=== PATIENT | male | born 1950 | race Caucasian/White ===

== ENCOUNTER 2016-05-28 08:22 | Emergency (ER) | payer MEDICAID, OTHER, SELFPAY ==
[2016-05-28] MEDS ORDERED: Albuterol/Ipratropium 3.0-0.5 MG/3 ML Neb Soln NEB STA (09:10)
--- NOTE | 2016-05-28 09:44 | EDM.PDOC ---
ED HISTORY OF PRESENT ILLNESS - General Chief Complaint: Respiratory Problem Stated Complaint: SOB Time Seen by Provider: 05/28/16 08:42 Source of Information: Reports: Patient, RN notes reviewed History Limitations: Reports: No limitations - History of Present Illness INITIAL COMMENTS - FREE TEXT/NARRATIVE: The patient states that he has had a cough productive of white sputum, and dyspnea on exertion for the past 5 months, approximately. His dyspnea on exertion has gotten worse over the past 5 days, but he is not dyspneic at rest. He states that he has had wheezing for about 3 months. He states that he has seen Dr. Howard 3 times, [address] Dr. Richardson once, but that no tests were ordered. He then saw a midlevel in their office about 2 months ago, and a chest x-ray was ordered, which, according to the patient, showed left lower lobe pneumonia. He believes that he was prescribed an antibiotic, and he believes that he took it. He was also prescribed Singulair, which he states he took, but ran out of about 3 weeks ago. He states that he had previously been prescribed a codeine cough syrup, but when that ran out, he turned to drinking 6 shooter bottles of alcohol daily. No recent fever, chest pain, palpitations, nausea, vomiting, constipation, diarrhea, or urinary symptoms. The patient smokes about one pack of cigarettes per day, despite his aforementioned pulmonary symptoms. - Related Data Allergies/ADRs: Allergies Allergy/AdvReac Type Severity Reaction Status Date / Time No Known Allergies Allergy Verified 05/28/16 09:02 Home Meds: Home Meds Levothyroxine 125 mcg PO DAILY 07/21/13 [History] Metoprolol Succinate [Toprol XL] 50 mg PO DAILY 07/21/13 [History] Albuterol [IJD: Ventolin HFA] 2 puff INH Q4H PRN #18 gm 05/28/16 [Rx] Past Medical History Cardiovascular History: Reports: Hypertension Psychiatric History: Reports: Depression Endocrine/Metabolic History: Reports: Hypothyroidism - Infectious Disease History Infectious Disease History: Reports: Chicken pox, Mumps Social & Family History - Tobacco Use Smoking Status *Q: Current Every Day Smoker Years of Tobacco use: 50 Packs/Tins Daily: 1 - Caffeine Use Caffeine Use: Reports: Coffee - Alcohol Use Alcohol Use History: Yes Days Per Week of Alcohol Use: 7 Number of Drinks Per Day: 6 Total Drinks Per Week: 42 Alcohol Use Frequency: Daily - Recreational Drug Use Recreational Drug Use: No - Living Situation & Occupation Living situation: Reports: , alone Occupation: employed ([employer]) ED ROS GENERAL - Review of Systems Review Of Systems: See Below Constitutional: Reports: no symptoms HEENT: Reports: No symptoms Respiratory: Reports: Wheezing, Cough, Sputum. Denies: Shortness of Breath Cardiovascular: Reports: No symptoms, Dyspnea on exertion Endocrine: Reports: no symptoms GI/Abdominal: Reports: No symptoms : Reports: no symptoms Musculoskeletal: Reports: no symptoms Skin: Reports: no symptoms Neurological: Reports: No Symptoms Psychiatric: Reports: No symptoms Hematologic/Lymphatic: Reports: no symptoms Immunologic: Reports: no symptoms ED EXAM, GENERAL - Physical Exam Exam: See Below Exam Limited By: No limitations General Appearance: alert, WD/WN, no apparent distress Eye Exam: bilateral eye: EOMI, normal inspection Ears: normal external exam, hearing grossly normal Ear Exam: bilateral ear: auricle normal Nose: normal inspection, no blood Throat/Mouth: Normal inspection, Normal lips, Normal voice, No airway compromise Head: atraumatic, normocephalic Neck: normal inspection, full range of motion Respiratory/Chest: no respiratory distress, no accessory muscle use, decreased breath sounds, wheezing (throughout lungs), prolonged expiration Cardiovascular: normal peripheral pulses, no gallop, no JVD, no murmur, no rub, tachycardia (regular) Peripheral Pulses: 4+: radial (L), radial (R) GI/Abdominal: normal bowel sounds, soft, non tender, no organomegaly, no distention, no abnormal bruit, no mass (Male) Exam: Deferred Rectal (Males) Exam: Deferred Back Exam: normal inspection, full range of motion, NT Extremities: normal inspection, normal range of motion, no pedal edema, normal capillary refill Neurological: alert, oriented, normal cognition, no motor/sensory deficits Psychiatric: normal affect Skin Exam: Warm, Dry, Intact, Normal color, No rash Lymphatic: no adenopathy EKG INTERPRETATION EKG Date: 05/28/16 Time: 09:25 Rhythm: other (Sinus tachycardia) Rate (beats/min): 108 [place]: normal P-wave: present QRS: normal ST-T: normal QT: normal Comparison: no change (04/15/2014) Course - Vital Signs Last Recorded V/S: Last Vital Signs Temp 36.5 C 05/28/16 08:25 Pulse 122 H 05/28/16 08:25 Resp 33 H 05/28/16 08:25 BP 112/84 05/28/16 08:25 Pulse Ox 99 05/28/16 10:52 - Orders/Labs/Meds Orders: Active Orders 24 hr Category Date Time Status EKG Documentation Completion [RC] STAT Care 05/28/16 09:07 Active RT Aerosol Therapy [RC] ASDIRECTED Care 05/28/16 09:10 Active RT Aerosol Therapy [RC] ASDIRECTED Care 05/28/16 10:36 Inactive RT Aerosol Therapy [RC] ASDIRECTED Care 05/28/16 10:45 Active CULTURE BLOOD [] Stat Lab 05/28/16 09:30 Received CULTURE BLOOD [] Stat Lab 05/28/16 09:50 Received Sodium Chloride 0.9% [Normal Saline] 1,000 ml Med 05/28/16 09:45 Active IV ASDIRECTED Sodium Chloride 0.9% [Normal Saline] 100 ml Med 05/28/16 11:15 Active IV ASDIRECTED Sodium Chloride 0.9% [Saline Flush] Med 05/28/16 10:11 Active 10 ml FLUSH ONETIME PRN Medication Orders Sodium Chloride (Normal Saline) 1,000 mls @ 150 mls/hr IV ASDIRECTED RADHA Last Admin: 05/28/16 09:49 Dose: 150 mls/hr Sodium Chloride (Normal Saline) 100 mls @ 65 mls/hr IV ASDIRECTED RADHA Last Admin: 05/28/16 10:15 Dose: 65 mls/hr Sodium Chloride (Saline Flush) 10 ml FLUSH ONETIME PRN PRN Reason: IV FLUSH Last Admin: 05/28/16 10:15 Dose: 10 ml Labs: Laboratory Tests 05/28/16 05/28/16 05/28/16 Range/Units 08:35 08:35 08:35 WBC 8.02 (4.23-9.07) K/mm3 RBC 5.16 (4.63-6.08) M/mm3 Hgb 17.0 (13.7-17.5) gm/L Hct 50.7 (40.1-51.0) % MCV 98.3 H (79.0-92.2) fl MCH 32.9 H (25.7-32.2) pg MCHC 33.5 (32.2-35.5) g/dl RDW Std Deviation 45.0 H (35.1-43.9) fL Plt Count 205 (163-337) K/mm3 MPV 9.8 (9.4-12.3) fl Neutrophils % (Manual) 16 L (40-60) % Band Neutrophils % 0 (0-10) % Lymphocytes % (Manual) 77 H (20-40) % Atypical Lymphs % 0 % Monocytes % (Manual) 3 (2-10) % Eosinophils % (Manual) 4 (0.8-7.0) % Basophils % (Manual) 0 L (0.2-1.2) Differential Comment See note Platelet Estimate Adequate RBC Morph Comment Normal PT 10.9 (8.0-13.0) SECONDS INR 1.00 APTT 29 (22-36) SECONDS D-Dimer, Quantitative 1.81 H (0.19-0.59) mg/L Puncture Site ABG pH (7.35-7.45) ABG pCO2 (35.0-45.0) mmHg ABG pO2 (80.0-100.0) mmHg ABG HCO3 (22.0-26.0) meq/L ABG O2 Saturation (96.0-97.0) % ABG Base Excess (-2-2.0) Hieu Test A-a Gradient mmHg FiO2 (21.00-100.00) % Sodium 141 (136-145) mEq/L Potassium 3.8 (3.5-5.1) mEq/L Chloride 103 (98-107) mEq/L Carbon Dioxide 28 (21-32) mEq/L Anion Gap 13.8 (5-15) BUN 14 (7-18) mg/dL Creatinine 1.0 (0.7-1.3) mg/dL Est Cr Clr Drug Dosing 70.69 mL/min Estimated GFR (MDRD) > 60 (>60) mL/min BUN/Creatinine Ratio 14.0 (14-18) Glucose 108 (80-115) mg/dL Calcium 8.3 L (8.5-10.1) mg/dL Total Bilirubin 0.4 (0.2-1.0) mg/dL AST 26 (15-37) U/L ALT 28 (16-63) U/L Alkaline Phosphatase 111 (46-116) U/L Troponin I < 0.017 (0.00-0.056) ng/mL C-Reactive Protein < 0.2 (<1.0) mg/dL B-Natriuretic Peptide (0-100) pg/mL Total Protein 7.9 (6.4-8.2) g/dl Albumin 3.7 (3.4-5.0) g/dl Globulin 4.2 gm/dL Albumin/Globulin Ratio 0.9 L (1-2) 05/28/16 05/28/16 Range/Units 08:35 09:50 WBC (4.23-9.07) K/mm3 RBC (4.63-6.08) M/mm3 Hgb (13.7-17.5) gm/L Hct (40.1-51.0) % MCV (79.0-92.2) fl MCH (25.7-32.2) pg MCHC (32.2-35.5) g/dl RDW Std Deviation (35.1-43.9) fL Plt Count (163-337) K/mm3 MPV (9.4-12.3) fl Neutrophils % (Manual) (40-60) % Band Neutrophils % (0-10) % Lymphocytes % (Manual) (20-40) % Atypical Lymphs % % Monocytes % (Manual) (2-10) % Eosinophils % (Manual) (0.8-7.0) % Basophils % (Manual) (0.2-1.2) Differential Comment Platelet Estimate RBC Morph Comment PT (8.0-13.0) SECONDS INR APTT (22-36) SECONDS D-Dimer, Quantitative (0.19-0.59) mg/L Puncture Site Lt radial ABG pH 7.43 (7.35-7.45) ABG pCO2 36.9 (35.0-45.0) mmHg ABG pO2 61.0 L (80.0-100.0) mmHg ABG HCO3 24.1 (22.0-26.0) meq/L ABG O2 Saturation 91.7 L (96.0-97.0) % ABG Base Excess 0.6 (-2-2.0) Hieu Test Positive A-a Gradient 34 mmHg FiO2 21.00 (21.00-100.00) % Sodium (136-145) mEq/L Potassium (3.5-5.1) mEq/L Chloride (98-107) mEq/L Carbon Dioxide (21-32) mEq/L Anion Gap (5-15) BUN (7-18) mg/dL Creatinine (0.7-1.3) mg/dL Est Cr Clr Drug Dosing mL/min Estimated GFR (MDRD) (>60) mL/min BUN/Creatinine Ratio (14-18) Glucose (80-115) mg/dL Calcium (8.5-10.1) mg/dL Total Bilirubin (0.2-1.0) mg/dL AST (15-37) U/L ALT (16-63) U/L Alkaline Phosphatase (46-116) U/L Troponin I (0.00-0.056) ng/mL C-Reactive Protein (<1.0) mg/dL B-Natriuretic Peptide < 15 (0-100) pg/mL Total Protein (6.4-8.2) g/dl Albumin (3.4-5.0) g/dl Globulin gm/dL Albumin/Globulin Ratio (1-2) Meds: Medications Generic Name Dose Route Start Last Admin Trade Name Freq PRN Reason Stop Dose Admin Sodium Chloride 1,000 mls @ 150 mls/hr 05/28/16 09:45 05/28/16 09:49 Normal Saline IV 150 mls/hr ASDIRECTED RADHA Administration Sodium Chloride 100 mls @ 65 mls/hr 05/28/16 11:15 05/28/16 10:15 Normal Saline IV 65 mls/hr ASDIRECTED RADHA Administration Sodium Chloride 10 ml 05/28/16 10:11 05/28/16 10:15 Saline Flush FLUSH 10 ml ONETIME PRN Administration IV FLUSH Discontinued Medications Generic Name Dose Route Start Last Admin Trade Name Freq PRN Reason Stop Dose Admin Albuterol 0.63 mg 05/28/16 10:36 05/28/16 10:52 Proventil Neb Soln NEB 05/28/16 10:37 Not Given ONETIME ONE Albuterol 2.5 mg 05/28/16 10:45 05/28/16 10:52 Proventil Neb Soln NEB 05/28/16 10:46 Not Given ONETIME ONE Albuterol Confirm 05/28/16 10:48 05/28/16 10:51 Proventil Neb Soln Administered 05/28/16 10:49 2.5 mg Dose Administration 2.5 mg .ROUTE .STK-MED ONE Albuterol/Ipratropium 3 ml 05/28/16 09:10 05/28/16 09:24 Duoneb 3.0-0.5 Mg/3 Ml NEB 05/28/16 09:11 3 ml ONETIME STA Administration Sodium Chloride 150 mls @ 60 mls/hr 05/28/16 10:11 05/28/16 11:09 Normal Saline IV 05/28/16 12:40 Not Given ASDIRECTED ONE Iopamidol 100 ml 05/28/16 10:11 05/28/16 10:15 Isovue-370 (76%) IVPUSH 05/28/16 10:12 100 ml ONETIME ONE Administration Prednisone 60 mg 05/28/16 10:36 05/28/16 11:02 Prednisone PO 05/28/16 10:37 60 mg ONETIME STA Administration - Radiology Interpretation Free Text/Narrative:: Two-view chest radiograph does not appear to demonstrate any acute abnormalities. Cardiac silhouette is within normal limits. No pulmonary vascular congestion. No pleural effusions. No focal infiltrate. No pneumothorax. There may be some platelike atelectasis in the left base. Formal read per the Radiologist pending. CT angiogram of the chest is read by Dr. Raymond as: 1. No findings of pulmonary embolism 2. Gallstones. 3. 2 small subpleural nodules. If patient is a smoker, recommend follow-up exam in 6 months. If patient is not a smoker, recommend noncontrast chest CT in one year. 4. Other incidental findings as noted above. - Re-Assessments/Exams Free Text/Narrative Re-Assessment/Exam: 05/28/16 09:43 The patient's D-dimer has returned elevated at 1.81. I have ordered a CT angiogram of the chest to rule out PE. 05/28/16 10:37 The patient sounds somewhat better after a DuoNeb, although still has diffuse wheezing. I have ordered an albuterol neb and 60 mg oral prednisone. 05/28/16 11:42 The patient was reexamined. His lungs are now almost entirely clear. I will discharge him home with a prescription for albuterol, should he need it, however , I believe his primary problem is airway restriction due to cigarette smoking. The patient states that he is able to quit smoking, which I highly recommended. I am also recommending that the patient cut his alcohol consumption down considerably, explaining that alcohol does not help with coughs. The CT angiogram demonstrated some pulmonary nodules. I made patient aware that he will need to have a repeat CT scan of his chest with IV contrast in about 6 months, which can be arranged for by Dr. Howard. Departure - Departure Time of Disposition: 11:45 Disposition: Home, Self-Care 01 Condition: good Clinical Impression: Reactive airway disease, Alcohol abuse, Pulmonary nodules Referrals: Ramses Olivares MD [Primary Care Provider] - Forms: ED Department Discharge Additional Instructions: You were seen in the emergency room for 5 months of coughing and shortness of breath with exertion. Workup in the ER included blood work, 2 sets of blood cultures, an ABG, an ECG, a chest x-ray, and a CT angiogram of your chest. Your workup was, for the most part, unremarkable. You do not have pneumonia. You were not suffering from a COPD exacerbation. Your symptoms substantially improved after treatment with albuterol and prednisone. It is MOST LIKELY that your symptoms were due to airway restriction due to cigarette smoking. We STRONGLY recommend that you quit smoking. You have been prescribed an albuterol inhaler. Take 2 puffs as needed for shortness of breath with wheezing, with or without cough. If you require albuterol more often than every 4 hours, you need to be seen by a doctor. The CT angiogram of your chest found some pulmonary nodules. The Radiologist is recommending a repeat CT scan of your chest with IV contrast in 6 months. This can be arranged by Dr. Howard. Alcohol does not suppress coughs. We recommend that you reduce your drinking to no more than 2 drinks per day. Followup with Dr. Howard at the next available appointment. If any other problems, please do not hesitate to return to the ER. - My Orders Last 24 Hours: My Active Orders 05/28/16 09:07 EKG Documentation Completion [RC] STAT 05/28/16 09:10 RT Aerosol Therapy [RC] ASDIRECTED 05/28/16 09:30 CULTURE BLOOD [BC] Stat 05/28/16 09:45 Sodium Chloride 0.9% [Normal Saline] 1,000 ml IV ASDIRECTED 05/28/16 09:50 CULTURE BLOOD [BC] Stat 05/28/16 10:11 Sodium Chloride 0.9% [Saline Flush] 10 ml FLUSH ONETIME PRN 05/28/16 10:36 RT Aerosol Therapy [RC] ASDIRECTED 05/28/16 10:45 RT Aerosol Therapy [RC] ASDIRECTED 05/28/16 11:15 Sodium Chloride 0.9% [Normal Saline] 100 ml IV ASDIRECTED - Assessment/Plan Last 24 Hours: My Active Orders 05/28/16 09:07 EKG Documentation Completion [RC] STAT 05/28/16 09:10 RT Aerosol Therapy [RC] ASDIRECTED 05/28/16 09:30 CULTURE BLOOD [BC] Stat 05/28/16 09:45 Sodium Chloride 0.9% [Normal Saline] 1,000 ml IV ASDIRECTED 05/28/16 09:50 CULTURE BLOOD [BC] Stat 05/28/16 10:11 Sodium Chloride 0.9% [Saline Flush] 10 ml FLUSH ONETIME PRN 05/28/16 10:36 RT Aerosol Therapy [RC] ASDIRECTED 05/28/16 10:45 RT Aerosol Therapy [RC] ASDIRECTED 05/28/16 11:15 Sodium Chloride 0.9% [Normal Saline] 100 ml IV ASDIRECTED
[2016-05-28] MEDS ORDERED: Sodium Chloride 0.9% 1,000 ML IV SCH (09:45)
[2016-05-28] MEDS ORDERED: Iopamidol 755 Mg/ML 100 ML Bottle IVPUSH ONE (10:11)
[2016-05-28] MEDS ORDERED: Sodium Chloride 0.9% 10 ML Syringe FLUSH PRN (10:11)
--- NOTE | 2016-05-28 10:29 | CT ---
CT chest Technique: Multiple axial sections were obtained through the chest. Intravenous contrast was utilized. Findings: Pulmonary arteries are well-opacified. No filling defects are seen to indicate pulmonary embolism. Mediastinum and hilar regions show no adenopathy or mass. Mild coronary artery calcification is seen. No pericardial thickening is seen. Increased density within the gallbladder is seen most likely representing gallstones. Small subpleural nodule is noted within the left lung base measuring 5 mm. Second small subpleural nodule is noted within the right middle lobe measuring 3.5 mm. Lungs otherwise are clear. Scattered degenerative endplate spurring is seen within the spine. Impression: 1. No findings of pulmonary embolism. 2. Gallstones. 3. 2 small subpleural nodules. If patient is a smoker, recommend follow-up exam in 6 months. If patient is not a smoker, recommend noncontrast chest CT in one year. 4. Other incidental findings as noted above. Diagnostic code #3
--- NOTE | 2016-05-28 10:31 | CR ---
Chest: Two views of the chest were obtained. Comparison: Previous chest x-ray of 10/13/13. Heart size and mediastinum are within normal limits. Lungs are clear with no acute infiltrates. Mild scattered disc space narrowing noted within the spine with endplate osteophytes. Impression: 1. Incidental findings. Nothing acute is identified on two-view chest x-ray. Diagnostic code #2
[2016-05-28] MEDS ORDERED: Albuterol 0.021% 0.63 MG/3 ML Neb Soln NEB ONE ×2 (10:36→10:45)
[2016-05-28] MEDS ORDERED: predniSONE 20 MG Tab PO STA (10:36)
[2016-05-28] MEDS ORDERED: Albuterol 0.083% 2.5 MG/3 ML Neb Soln ONE (10:48)
[2016-05-28] MEDS ORDERED: Sodium Chloride 0.9% 100 ML IV SCH (11:15)
[2016-05-28 12:12] VITALS: BP 143/84
== END 2016-05-28 12:08 | disposition home or self-care (01) ==
LOC: JD.ED 08:22
DX: J45.909 Unspecified asthma, uncomplicated (principal); F10.10 Alcohol abuse, uncomplicated; R91.1 Solitary pulmonary nodule; I10 Essential (primary) hypertension; F32.9 Major depressive disorder, single episode, unspecified; E03.9 Hypothyroidism, unspecified; F17.210 Nicotine dependence, cigarettes, uncomplicated; Z79.899 Other long term (current) drug therapy
CPT/HCPCS: 36415; 36600; 71020; 71275; 80053; 82803; 83880; 84484; 85025; 85379; 85610; 85730; 86140; 87040; 93005; 94640; 94664; 96360; 96361; 99285; A9270; J7030; J7040; J7050; Q9967; 99284

== ENCOUNTER 2016-06-14 15:01 | Emergency (ER) | payer OTHER, SELFPAY ==
[2016-06-14] MEDS ORDERED: Albuterol 0.083% 2.5 MG/3 ML Neb Soln NEB ONE (15:28)
[2016-06-14] MEDS ORDERED: Sodium Chloride 0.9% 10 ML Syringe FLUSH PRN (15:28)
[2016-06-14] MEDS ORDERED: methylPREDNISolone Sodium Succinate 125 MG/2 ML SDV IVPUSH ONE (15:28)
[2016-06-14] MEDS ORDERED: Sodium Chloride 0.9% 500 ML IV ONE (15:28)
--- NOTE | 2016-06-14 16:28 | EDM.PDOC ---
ED HISTORY OF PRESENT ILLNESS - General Chief Complaint: Respiratory Problem Stated Complaint: [facility] Time Seen by Provider: 06/14/16 15:21 Source of Information: Reports: Patient, RN notes reviewed - History of Present Illness INITIAL COMMENTS - FREE TEXT/NARRATIVE: 65-year-old male comes in with complaint of cough, difficulty breathing. He states he has had severe cough for "3 months". She states his cough is productive of grossly colored phlegm. He does have anterior chest discomfort with coughing. At times he does get short of breath with the coughing. He states he drinks shots of alcohol, today decrement schnapps to help out "stop the cough". He has had occasional chills. No recent fever. No dominant pain nausea or vomiting. - Related Data Allergies/ADRs: Allergies Allergy/AdvReac Type Severity Reaction Status Date / Time No Known Allergies Allergy Verified 05/28/16 09:02 Home Meds: Home Meds Levothyroxine 125 mcg PO DAILY 07/21/13 [History] Metoprolol Succinate [Toprol XL] 50 mg PO DAILY 07/21/13 [History] Albuterol [IJD: Ventolin HFA] 2 puff INH Q4H PRN #18 gm 05/28/16 [Rx] Doxycycline [Vibramycin] 100 mg PO BID #14 tablet 06/14/16 [Rx] Past Medical History - Past Health History Medical/Surgical History: Denies Medical/Surgical History HEENT History: Reports: Other (see below) Other HEENT History: upper/lower dentures. Cardiovascular History: Reports: Hypertension Psychiatric History: Reports: Depression Endocrine/Metabolic History: Reports: Hypothyroidism - Infectious Disease History Infectious Disease History: Reports: Chicken pox, Mumps Social & Family History - Family History Family Medical History: Noncontributory - Tobacco Use Smoking Status *Q: Former Smoker Years of Tobacco use: 49 Packs/Tins Daily: 1 Used Tobacco, but Quit: Yes Month Tobacco Last Used: May 2016 Second Hand Smoke Exposure: No - Caffeine Use Caffeine Use: Reports: None - Alcohol Use Days Per Week of Alcohol Use: 7 Number of Drinks Per Day: 6 Total Drinks Per Week: 42 Date of Last Drink: 06/14/16 - Recreational Drug Use Recreational Drug Use: No - Living Situation & Occupation Living situation: Reports: , alone Occupation: employed ([employer]) ED ROS GENERAL - Review of Systems Review Of Systems: See Below Constitutional: Reports: chills. Denies: fever HEENT: Denies: Sinus problem, Throat pain Respiratory: Reports: Shortness of Breath, Pleuritic Chest Pain. Denies: Wheezing Cardiovascular: Reports: Chest pain (With coughing) GI/Abdominal: Denies: Abdominal pain, Nausea, Vomiting Musculoskeletal: Denies: shoulder pain, arm pain Neurological: Reports: Dizziness. Denies: Trouble Speaking, Difficulty Walking ED EXAM, GENERAL - Physical Exam Exam: See Below General Appearance: alert, no apparent distress Eye Exam: bilateral eye: PERRL Throat/Mouth: Normal inspection, Normal oropharynx Neck: supple, other (No JVD) Respiratory/Chest: respiratory distress (Water tachypnea), wheezing (Mild). No : rales, rhonchi Cardiovascular: tachycardia GI/Abdominal: soft, non tender. No: guarding Rectal (Males) Exam: No: Tenderness Back Exam: No: CVA tenderness (R) Extremities: No: pedal edema, leg pain Neurological: alert, no motor/sensory deficits, other (Appears moderately intoxicated) Skin Exam: Warm, Dry, Normal color, No rash Course - Vital Signs Last Recorded V/S: Last Vital Signs Temp 97.9 F 06/14/16 15:06 Pulse 113 H 06/14/16 15:06 Resp 22 H 06/14/16 15:06 BP 138/90 06/14/16 15:06 Pulse Ox 97 06/14/16 15:37 - Orders/Labs/Meds Orders: Active Orders 24 hr Category Date Time Status Peripheral IV Care [RC] . DIRECTED Care 06/14/16 15:28 Active RT Aerosol Therapy [RC] ASDIRECTED Care 06/14/16 15:28 Active Chest 1V Frontal [CR] Stat Exams 06/14/16 15:27 Taken Sodium Chloride 0.9% [Saline Flush] Med 06/14/16 15:28 Active 10 ml FLUSH ASDIRECTED PRN Peripheral IV Insertion Adult [OM.PC] Stat Oth 06/14/16 15:28 Ordered Medication Orders Sodium Chloride (Saline Flush) 10 ml FLUSH ASDIRECTED PRN PRN Reason: Keep Vein Open Last Admin: 06/14/16 15:30 Dose: 10 ml Labs: Laboratory Tests 06/14/16 06/14/16 06/14/16 Range/Units 15:55 15:55 15:55 WBC 8.47 (4.23-9.07) K/mm3 RBC 4.60 L (4.63-6.08) M/mm3 Hgb 15.3 (13.7-17.5) gm/L Hct 46.1 (40.1-51.0) % MCV 100.2 H (79.0-92.2) fl MCH 33.3 H (25.7-32.2) pg MCHC 33.2 (32.2-35.5) g/dl RDW Std Deviation 47.7 H (35.1-43.9) fL Plt Count 248 (163-337) K/mm3 MPV 9.4 (9.4-12.3) fl Neut % (Auto) 21.6 L (34.0-67.9) % Lymph % (Auto) 67.2 H (21.8-53.1) % [place] % (Auto) 7.9 (5.3-12.2) % Eos % (Auto) 2.0 (0.8-7.0) Baso % (Auto) 1.2 (0.1-1.2) % Neut # (Auto) 1.83 (1.78-5.38) K/mm3 Lymph # (Auto) 5.69 H (1.32-3.57) K/mm3 [place] # (Auto) 0.67 (0.30-0.82) K/mm3 Eos # (Auto) 0.17 (0.04-0.54) K/mm3 Baso # (Auto) 0.10 H (0.01-0.08) K/mm3 Manual Slide Review Abnormal smear Sodium 138 (136-145) mEq/L Potassium 3.9 (3.5-5.1) mEq/L Chloride 102 (98-107) mEq/L Carbon Dioxide 24 (21-32) mEq/L Anion Gap 15.9 H (5-15) BUN 10 (7-18) mg/dL Creatinine 1.1 (0.7-1.3) mg/dL Est Cr Clr Drug Dosing TNP Estimated GFR (MDRD) > 60 (>60) mL/min BUN/Creatinine Ratio 9.1 L (14-18) Glucose 85 (80-115) mg/dL Calcium 8.5 (8.5-10.1) mg/dL Total Bilirubin 0.3 (0.2-1.0) mg/dL AST 32 (15-37) U/L ALT 31 (16-63) U/L Alkaline Phosphatase 127 H (46-116) U/L C-Reactive Protein 0.2 (<1.0) mg/dL B-Natriuretic Peptide (0-100) pg/mL Total Protein 7.1 (6.4-8.2) g/dl Albumin 3.2 L (3.4-5.0) g/dl Globulin 3.9 gm/dL Albumin/Globulin Ratio 0.8 L (1-2) Ethyl Alcohol 0.26 (0.00) gm% 06/14/16 Range/Units 15:55 WBC (4.23-9.07) K/mm3 RBC (4.63-6.08) M/mm3 Hgb (13.7-17.5) gm/L Hct (40.1-51.0) % MCV (79.0-92.2) fl MCH (25.7-32.2) pg MCHC (32.2-35.5) g/dl RDW Std Deviation (35.1-43.9) fL Plt Count (163-337) K/mm3 MPV (9.4-12.3) fl Neut % (Auto) (34.0-67.9) % Lymph % (Auto) (21.8-53.1) % [place] % (Auto) (5.3-12.2) % Eos % (Auto) (0.8-7.0) Baso % (Auto) (0.1-1.2) % Neut # (Auto) (1.78-5.38) K/mm3 Lymph # (Auto) (1.32-3.57) K/mm3 [place] # (Auto) (0.30-0.82) K/mm3 Eos # (Auto) (0.04-0.54) K/mm3 Baso # (Auto) (0.01-0.08) K/mm3 Manual Slide Review Sodium (136-145) mEq/L Potassium (3.5-5.1) mEq/L Chloride (98-107) mEq/L Carbon Dioxide (21-32) mEq/L Anion Gap (5-15) BUN (7-18) mg/dL Creatinine (0.7-1.3) mg/dL Est Cr Clr Drug Dosing Estimated GFR (MDRD) (>60) mL/min BUN/Creatinine Ratio (14-18) Glucose (80-115) mg/dL Calcium (8.5-10.1) mg/dL Total Bilirubin (0.2-1.0) mg/dL AST (15-37) U/L ALT (16-63) U/L Alkaline Phosphatase (46-116) U/L C-Reactive Protein (<1.0) mg/dL B-Natriuretic Peptide 15 (0-100) pg/mL Total Protein (6.4-8.2) g/dl Albumin (3.4-5.0) g/dl Globulin gm/dL Albumin/Globulin Ratio (1-2) Ethyl Alcohol (0.00) gm% Meds: Medications Generic Name Dose Route Start Last Admin Trade Name Freq PRN Reason Stop Dose Admin Sodium Chloride 10 ml 06/14/16 15:28 06/14/16 15:30 Saline Flush FLUSH 10 ml ASDIRECTED PRN Administration Keep Vein Open Discontinued Medications Generic Name Dose Route Start Last Admin Trade Name Freq PRN Reason Stop Dose Admin Albuterol 2.5 mg 06/14/16 15:28 06/14/16 15:36 Proventil Neb Soln NEB 06/14/16 15:29 2.5 mg ONETIME ONE Administration Doxycycline Hyclate 100 mg 06/14/16 17:09 06/14/16 17:32 Vibramycin PO 06/14/16 17:10 100 mg ONETIME ONE Administration Sodium Chloride 500 mls @ 999 mls/hr 06/14/16 15:28 06/14/16 15:39 Normal Saline IV 06/14/16 15:58 999 mls/hr .BOLUS ONE Administration Methylprednisolone Sodium Succinate 125 mg 06/14/16 15:28 06/14/16 15:41 Solu-Medrol IVPUSH 06/14/16 15:29 125 mg ONETIME ONE Administration - Re-Assessments/Exams Free Text/Narrative Re-Assessment/Exam: 06/14/16 18:19 Chest x-ray looked good. Labs came back all relatively normal other than his blood alcohol elevated at 0.26. We have given him 1 L of IV fluid. We did do an albuterol neb and I also did a dose of Solu-Medrol IV. Discharge instructions as documented. Departure - Departure Time of Disposition: 17:09 Disposition: Home, Self-Care 01 Condition: fair Clinical Impression: Bronchitis, Alcohol intoxication Prescriptions: Doxycycline [Vibramycin] 100 mg PO BID #14 tablet Instructions: Alcohol Intoxication, [id number], Acute Bronchitis, Easy-to- Read Referrals: PCP,Unknown [Primary Care Provider] - Forms: ED Department Discharge Additional Instructions: A prescription for doxycycline 100 mg twice daily has been sent to the medicine shop. That up this evening before they closer otherwise tomorrow morning. Take that twice daily until gone. Drink less alcohol. Drink more water. Regular meals and snacks. Followup with your regular medical provider if not much better within 5-10 days. - My Orders Last 24 Hours: My Active Orders 06/14/16 15:27 Chest 1V Frontal [CR] Stat 06/14/16 15:28 Peripheral IV Care [RC] . DIRECTED RT Aerosol Therapy [RC] ASDIRECTED Sodium Chloride 0.9% [Saline Flush] 10 ml FLUSH ASDIRECTED PRN Peripheral IV Insertion Adult [OM.PC] Stat - Assessment/Plan Last 24 Hours: My Active Orders 06/14/16 15:27 Chest 1V Frontal [CR] Stat 06/14/16 15:28 Peripheral IV Care [RC] . DIRECTED RT Aerosol Therapy [RC] ASDIRECTED Sodium Chloride 0.9% [Saline Flush] 10 ml FLUSH ASDIRECTED PRN Peripheral IV Insertion Adult [OM.PC] Stat
[2016-06-14] MEDS ORDERED: Doxycycline 100 MG Cap PO ONE (17:09)
[2016-06-14 18:35] VITALS: BP 133/93
--- NOTE | 2016-06-15 06:43 | CR ---
Chest: Portable view of the chest was obtained. Comparison: Previous chest x-ray of 05/28/16. Heart size and mediastinum are normal. Lungs are clear. Bony structures are grossly intact. Impression: 1. Nothing acute is identified on frontal chest x-ray. Diagnostic code #1
== END 2016-06-14 17:45 | disposition home or self-care (01) ==
LOC: JD.ED 15:01
DX: J40 Bronchitis, not specified as acute or chronic (principal); F10.120 Alcohol abuse with intoxication, uncomplicated; I10 Essential (primary) hypertension; E03.9 Hypothyroidism, unspecified; F32.9 Major depressive disorder, single episode, unspecified; Z87.891 Personal history of nicotine dependence; Z79.899 Other long term (current) drug therapy
CPT/HCPCS: 36415; 71010; 80053; 83880; 85025; 86140; 94664; 96361; 96374; 99285; A9270; G0480; J2930; J7040; J7050; 99284

== ENCOUNTER 2016-09-25 07:10 | Emergency (ER) | payer OTHER, SELFPAY ==
[2016-09-25] MEDS ORDERED: Sodium Chloride 0.9% 10 ML Syringe FLUSH PRN (07:19)
[2016-09-25] MEDS ORDERED: Albuterol/Ipratropium 3.0-0.5 MG/3 ML Neb Soln ONE (07:19)
[2016-09-25] MEDS ORDERED: Magnesium Sulfate/Water 2 GM in Premix Bag 1 BAG IV ONE (07:20)
[2016-09-25] MEDS ORDERED: methylPREDNISolone Sodium Succinate 125 MG/2 ML SDV IVPUSH ONE (07:20)
--- NOTE | 2016-09-25 08:20 | EDM.PDOC ---
ED HPI GENERAL MEDICAL PROBLEM - General Chief Complaint: Respiratory Problem Stated Complaint: SOB Time Seen by Provider: 09/25/16 07:19 Source of Information: Reports: Patient History Limitations: Reports: No Limitations - History of Present Illness INITIAL COMMENTS - FREE TEXT/NARRATIVE: The patient presents with shortness of breath. This has been going on for about 2 days. He has a history of chronic bronchitis and his inhaler is out. He denies fever, chills, cough, congestion, runny nose or chest pain. He has no abdominal pain, nausea or vomiting. He can only speak in short sentences because he is short of breath. Onset: Gradual Duration: Day(s): (2) Severity: Severe Improves with: Reports: None Worsens with: Reports: Movement Associated Symptoms: Reports: Shortness of Breath. Denies: Chest Pain, Cough, Fever/Chills, Nausea/Vomiting - Related Data Allergies Allergy/AdvReac Type Severity Reaction Status Date / Time No Known Allergies Allergy Verified 05/28/16 09:02 Home Meds: Home Meds Levothyroxine 125 mcg PO DAILY 07/21/13 [History] Metoprolol Succinate [Toprol XL] 50 mg PO DAILY 07/21/13 [History] Albuterol [IJD: Ventolin HFA] 2 puff INH Q4H PRN #18 gm 05/28/16 [Rx] Albuterol [IJD: Albuterol HFA] 2 puff .XX Q4HR PRN #8 gm 09/25/16 [Rx] Prednisone [IJD: predniSONE] 40 mg PO WITHBREAKFAST #10 tab 09/25/16 [Rx] Past Medical History - Past Health History Medical/Surgical History: Denies Medical/Surgical History HEENT History: Reports: Other (See Below) Other HEENT History: wears glasses Cardiovascular History: Reports: Hypertension Respiratory History: Reports: Asthma, Bronchitis, Recurrent Psychiatric History: Reports: Depression Endocrine/Metabolic History: Reports: Hypothyroidism - Infectious Disease History Infectious Disease History: Reports: Chicken Pox, Mumps Social & Family History - Family History Family Medical History: Noncontributory - Tobacco Use Smoking Status *Q: Former Smoker Years of Tobacco use: 49 Packs/Tins Daily: 1 Used Tobacco, but Quit: Yes Month Tobacco Last Used: JULY 2016 Second Hand Smoke Exposure: No - Caffeine Use Caffeine Use: Reports: None - Alcohol Use Days Per Week of Alcohol Use: 7 Number of Drinks Per Day: 6 Total Drinks Per Week: 42 - Recreational Drug Use Recreational Drug Use: No - Living Situation & Occupation Living situation: Reports: , Alone Occupation: Employed ED ROS GENERAL - Review of Systems Review Of Systems: See Below Constitutional: Reports: No Symptoms HEENT: Reports: No Symptoms Respiratory: Reports: Shortness of Breath. Denies: Cough Cardiovascular: Reports: No Symptoms Endocrine: Reports: No Symptoms GI/Abdominal: Reports: No Symptoms : Reports: No Symptoms Musculoskeletal: Reports: No Symptoms Skin: Reports: No Symptoms Neurological: Reports: No Symptoms ED EXAM, GENERAL - Physical Exam Exam: See Below Exam Limited By: No Limitations General Appearance: Moderate Distress Ears: Normal External Exam Nose: Normal Inspection Head: Atraumatic, Normocephalic Neck: Normal Inspection Respiratory/Chest: Respiratory Distress (Moderate), Decreased Breath Sounds, Wheezing Cardiovascular: Regular Rate, Rhythm, No Edema, No Murmur GI/Abdominal: Soft, Non-Tender, No Organomegaly, No Mass Back Exam: Normal Inspection Extremities: Normal Inspection EKG INTERPRETATION EKG Date: 09/25/16 Time: 07:28 Rhythm: Other (Sinus tachycardia) Rate (Beats/Min): 115 [place]: LAD-Left [place]uning Deviation P-Wave: Present QRS: Normal ST-T: Normal QT: Normal Course - Vital Signs Last Recorded V/S: Last Vital Signs Temp 98.9 F 09/25/16 07:15 Pulse 108 H 09/25/16 07:51 Resp 18 09/25/16 07:51 BP 147/92 H 09/25/16 07:51 Pulse Ox 95 09/25/16 07:51 - Orders/Labs/Meds Orders: Active Orders 24 hr Category Date Time Status Cardiac Monitoring [RC] . DIRECTED Care 09/25/16 07:19 Active EKG 12 Lead [EKG Documentation Completion] [RC] STAT Care 09/25/16 07:21 Active Peripheral IV Care [RC] . DIRECTED Care 09/25/16 07:19 Active Chest 1V Frontal [CR] Stat Exams 09/25/16 07:19 Taken Magnesium Sulfate/Water [Magnesium Sulfate 2 GM in Med 09/25/16 07:20 Active Water 50 ML] 2 gm Premix Bag 1 bag IV ONETIME Sodium Chloride 0.9% [Saline Flush] Med 09/25/16 07:19 Active 10 ml FLUSH ASDIRECTED PRN Peripheral IV Insertion Adult [OM.PC] Stat Oth 09/25/16 07:19 Ordered Medication Orders Magnesium Sulfate 2 gm/ Premix 50 mls @ 25 mls/hr IV ONETIME ONE Stop: 09/25/16 09:19 Last Admin: 09/25/16 07:30 Dose: 25 mls/hr Sodium Chloride (Saline Flush) 10 ml FLUSH ASDIRECTED PRN PRN Reason: Keep Vein Open Last Admin: 09/25/16 07:31 Dose: 10 ml Labs: Laboratory Tests 09/25/16 09/25/16 Range/Units 07:19 07:19 WBC 7.41 (4.23-9.07) K/mm3 RBC 5.10 (4.63-6.08) M/mm3 Hgb 17.7 H (13.7-17.5) gm/L Hct 53.0 H (40.1-51.0) % MCV 103.9 H (79.0-92.2) fl MCH 34.7 H (25.7-32.2) pg MCHC 33.4 (32.2-35.5) g/dl RDW Std Deviation 57.4 H (35.1-43.9) fL Plt Count 122 L (163-337) K/mm3 MPV 9.8 (9.4-12.3) fl Neut % (Auto) 17.8 L (34.0-67.9) % Lymph % (Auto) 62.8 H (21.8-53.1) % [place] % (Auto) 10.8 (5.3-12.2) % Eos % (Auto) 7.2 H (0.8-7.0) Baso % (Auto) 1.3 H (0.1-1.2) % Neut # (Auto) 1.32 L (1.78-5.38) K/mm3 Lymph # (Auto) 4.65 H (1.32-3.57) K/mm3 [place] # (Auto) 0.80 (0.30-0.82) K/mm3 Eos # (Auto) 0.53 (0.04-0.54) K/mm3 Baso # (Auto) 0.10 H (0.01-0.08) K/mm3 Manual Slide Review Abnormal smear Sodium 141 (136-145) mEq/L Potassium 4.0 (3.5-5.1) mEq/L Chloride 102 (98-107) mEq/L Carbon Dioxide 30 (21-32) mEq/L Anion Gap 13.0 (5-15) BUN 9 (7-18) mg/dL Creatinine 1.1 (0.7-1.3) mg/dL Est Cr Clr Drug Dosing 63.43 mL/min Estimated GFR (MDRD) > 60 (>60) mL/min BUN/Creatinine Ratio 8.2 L (14-18) Glucose 95 (80-115) mg/dL Calcium 8.6 (8.5-10.1) mg/dL Total Bilirubin 0.5 (0.2-1.0) mg/dL AST 134 H (15-37) U/L ALT 144 H (16-63) U/L Alkaline Phosphatase 177 H (46-116) U/L Troponin I < 0.017 (0.00-0.056) ng/mL Total Protein 8.5 H (6.4-8.2) g/dl Albumin 3.4 (3.4-5.0) g/dl Globulin 5.1 gm/dL Albumin/Globulin Ratio 0.7 L (1-2) Meds: Medications Generic Name Dose Route Start Last Admin Trade Name Freq PRN Reason Stop Dose Admin Magnesium Sulfate 2 gm/ Premix 50 mls @ 25 mls/hr 09/25/16 07:20 09/25/16 07: 30 IV 09/25/16 09:19 25 mls/hr ONETIME ONE Administration Sodium Chloride 10 ml 09/25/16 07:19 09/25/16 07:31 Saline Flush FLUSH 10 ml ASDIRECTED PRN Administration Keep Vein Open Discontinued Medications Generic Name Dose Route Start Last Admin Trade Name Freq PRN Reason Stop Dose Admin Albuterol/Ipratropium Confirm 09/25/16 07:19 09/25/16 07:21 Duoneb 3.0-0.5 Mg/3 Ml Administered 09/25/16 07:20 3 ml Dose Administration 3 ml .ROUTE .STK-MED ONE Methylprednisolone Sodium Succinate 125 mg 09/25/16 07:20 09/25/16 07:31 Solu-Medrol IVPUSH 09/25/16 07:21 125 mg ONETIME ONE Administration - Re-Assessments/Exams Free Text/Narrative Re-Assessment/Exam: 09/25/16 08:18 I ordered oxygen, duo-neb, solu-medrol 125mg IV, EKG, labs, CXR and magnesium 2 grams IV. His CXR shows no infiltrates. His EKG shows a sinus tachycardia with no acute changes. His WBC is normal. His Hgb was elevated at 17.7. His platelets are a little low at 122. His AST was elevated at 134. His ALT was elevated at 144. His Alk Phos was elevated at 177. His troponin was negative. He feels way better and he sound good. He has no wheezing now. I will discharge him home on albuterol and prednisone for 5 days. Departure - Departure Time of Disposition: 08:25 Disposition: Home, Self-Care 01 Condition: Good Clinical Impression: Bronchitis Reactive airway disease Qualifiers: Asthma severity: moderate persistent Asthma complication type: with acute exacerbation Qualified Code(s): J45.41 - Moderate persistent asthma with (acute ) exacerbation - Discharge Information Prescriptions: Albuterol [IJD: Albuterol HFA] 2 puff .XX Q4HR PRN #8 gm PRN Reason: Shortness Of Breath Prednisone [IJD: predniSONE] 40 mg PO WITHBREAKFAST #10 tab Referrals: Ramses Olivares MD [Physician] - 1 Week Forms: ED Department Discharge Additional Instructions: Take the prednisone 40mg daily for 5 days. Use the albuterol inhaler 2 puffs every 4 to 6 hours as needed for any shortness of breath. Follow up with Dr Howard next week or return here if you get worse. - My Orders Last 24 Hours: My Active Orders 09/25/16 07:19 Cardiac Monitoring [RC] . DIRECTED Peripheral IV Care [RC] . DIRECTED Chest 1V Frontal [CR] Stat Sodium Chloride 0.9% [Saline Flush] 10 ml FLUSH ASDIRECTED PRN Peripheral IV Insertion Adult [OM.PC] Stat 09/25/16 07:20 Magnesium Sulfate/Water [Magnesium Sulfate 2 GM in Water 50 ML] 2 gm Premix Bag 1 bag IV ONETIME 09/25/16 07:21 EKG 12 Lead [EKG Documentation Completion] [RC] STAT - Assessment/Plan Last 24 Hours: My Active Orders 09/25/16 07:19 Cardiac Monitoring [RC] . DIRECTED Peripheral IV Care [RC] . DIRECTED Chest 1V Frontal [CR] Stat Sodium Chloride 0.9% [Saline Flush] 10 ml FLUSH ASDIRECTED PRN Peripheral IV Insertion Adult [OM.PC] Stat 09/25/16 07:20 Magnesium Sulfate/Water [Magnesium Sulfate 2 GM in Water 50 ML] 2 gm Premix Bag 1 bag IV ONETIME 09/25/16 07:21 EKG 12 Lead [EKG Documentation Completion] [RC] STAT
[2016-09-25 09:29] VITALS: BP 157/93
--- NOTE | 2016-09-26 13:56 | CR ---
Chest: Portable view of the chest was obtained. Comparison: Previous chest x-ray of 06/14/16. Heart size and mediastinum are normal. Lungs are clear. Bony structures are grossly intact. Incidental degenerative change is seen within both shoulders. Degenerative spurring is noted within the spine. Impression: 1. Incidental findings. Nothing acute is identified on portable chest x-ray. Diagnostic code #2
== END 2016-09-25 09:25 | disposition home or self-care (01) ==
LOC: JD.ED 07:10
DX: J45.41 Moderate persistent asthma with (acute) exacerbation (principal); J40 Bronchitis, not specified as acute or chronic; I10 Essential (primary) hypertension; F32.9 Major depressive disorder, single episode, unspecified; E03.9 Hypothyroidism, unspecified; Z79.899 Other long term (current) drug therapy; Z87.891 Personal history of nicotine dependence
CPT/HCPCS: 36415; 71010; 80053; 84484; 85025; 93005; 94664; 96365; 96366; 96375; 99285; J2930; J7050; 99284; J3475

== ENCOUNTER 2016-09-26 09:55 | Emergency (ER) | payer OTHER, SELFPAY ==
[2016-09-26 10:02] VITALS: BP 148/96
[2016-09-26] MEDS ORDERED: predniSONE 20 MG Tab PO STA (10:35)
[2016-09-26] MEDS ORDERED: Albuterol/Ipratropium 3.0-0.5 MG/3 ML Neb Soln NEB ONE (10:37)
--- NOTE | 2016-09-26 11:33 | EDM.PDOC ---
ED HPI GENERAL MEDICAL PROBLEM - General Chief Complaint: Respiratory Problem Stated Complaint: SOB Time Seen by Provider: 09/26/16 10:06 Source of Information: Reports: Patient, Old Records, RN Notes Reviewed History Limitations: Reports: No Limitations - History of Present Illness INITIAL COMMENTS - FREE TEXT/NARRATIVE: The patient was seen in this ED yesterday, 09/25/2016 with a complaint of shortness of breath for 2 days. A CBC, CMP, troponin, portable chest radiograph , and ECG were all unremarkable. The patient was treated with Solu-Medrol 125 mg IVP, a DuoNeb, and 2 g IV magnesium. His symptoms substantially improved, and he was discharged home with prescriptions for both prednisone and albuterol. The patient now returns with symptoms of a dry cough and wheezing. He denies dyspnea at rest and with exertion. No recent fever. He states that he did not fill the prescriptions that were written for him yesterday, and that he will not be able to fill them until he is paid on Tuesday , 09/28/2016. The patient was seen by me in this ED on 05/28/2016 for similar symptoms. His D- dimer returned elevated and a CT angiogram of the chest was performed, which returned as negative for a PE. Neither his chest radiograph nor CT scan indicated hyperinflation or any obvious cause of his symptoms. The patient states that he does not have a history of lung disease, has never seen a Principal Process Engineer, and has never undergone pulmonary function tests. He states that he was treated for "bronchitis" with an inhaled steroid about 2 months ago (please note that inhaled steroids do not treat acute bronchitis). He states that his symptoms resolved after 2 or 3 weeks of use and did not recur until a few days ago. The patient was a heavy smoker, smoking about 1 pack of cigarette per day for the past 50 years, until about 2 months ago. He states that he currently works a couple of days per week at the [employer]. He denies being exposed to any chemicals. The patient's PCP is Dr. Howard. - Related Data Allergies Allergy/AdvReac Type Severity Reaction Status Date / Time No Known Allergies Allergy Verified 05/28/16 09:02 Home Meds: Home Meds Levothyroxine 125 mcg PO DAILY 07/21/13 [History] Metoprolol Succinate [Toprol XL] 50 mg PO DAILY 07/21/13 [History] Albuterol [IJD: Ventolin HFA] 2 puff INH Q4H PRN #18 gm 05/28/16 [Rx] Albuterol [IJD: Albuterol HFA] 2 puff .XX Q4HR PRN #8 gm 09/25/16 [Rx] Prednisone [IJD: predniSONE] 40 mg PO WITHBREAKFAST #10 tab 09/25/16 [Rx] Past Medical History HEENT History: Reports: Other (See Below) Other HEENT History: wears glasses Cardiovascular History: Reports: Hypertension (being treated for it, but clinically, does not have HTN) Endocrine/Metabolic History: Reports: Hypothyroidism - Infectious Disease History Infectious Disease History: Reports: Chicken Pox, Mumps Social & Family History - Family History Family Medical History: Noncontributory - Tobacco Use Smoking Status *Q: Former Smoker Years of Tobacco use: 50 Packs/Tins Daily: 1 Month Tobacco Last Used: Quit July 2016 - Caffeine Use Caffeine Use: Reports: None - Alcohol Use Alcohol Use History: Yes Days Per Week of Alcohol Use: 7 Number of Drinks Per Day: 6 Total Drinks Per Week: 42 - Recreational Drug Use Recreational Drug Use: No - Living Situation & Occupation Living situation: Reports: , Alone 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 Denies: Shortness of Breath, Sputum Cardiovascular: Reports: No Symptoms Endocrine: Reports: No Symptoms GI/Abdominal: Reports: No Symptoms : Reports: No Symptoms Musculoskeletal: Reports: No Symptoms Skin: Reports: No Symptoms Neurological: Reports: No Symptoms Psychiatric: Reports: No Symptoms Hematologic/Lymphatic: Reports: No Symptoms Immunologic: Reports: No Symptoms ED EXAM, GENERAL - Physical Exam Exam: See Below Exam Limited By: No Limitations General Appearance: Alert, WD/WN, No Apparent Distress Eye Exam: Bilateral Eye: Normal Inspection Ears: Normal External Exam, Hearing Grossly Normal Nose: Normal Inspection, No Blood Throat/Mouth: Normal Inspection, Normal Lips, Normal Voice, No Airway Compromise Head: Atraumatic, Normocephalic Neck: Normal Inspection, Full Range of Motion Respiratory/Chest: No Respiratory Distress, No Accessory Muscle Use, Decreased Breath Sounds, Wheezing (throughout lung rincon), Prolonged Expiration (only slight). No: Crackles, Rhonchi Cardiovascular: Normal Peripheral Pulses, Regular Rate, Rhythm, No Gallop, No JVD, No Murmur, No Rub Peripheral Pulses: 4+: Radial (L), Radial (R) GI/Abdominal: Normal Bowel Sounds, Soft, No Organomegaly, No Distention, No Abnormal Bruit, No Mass (Male) Exam: Deferred Rectal (Males) Exam: Deferred Back Exam: Normal Inspection, Full Range of Motion, NT Extremities: Normal Inspection, Normal Range of Motion, No Pedal Edema, Normal Capillary Refill Neurological: Alert, Oriented, Normal Cognition, No Motor/Sensory Deficits Psychiatric: Normal Affect Skin Exam: Warm, Dry, Intact, Normal Color, No Rash Lymphatic: No Adenopathy EKG INTERPRETATION EKG Date: 09/26/16 Time: 10:01 Rhythm: Other (Sinus tachycardia) Rate (Beats/Min): 124 Lima: Normal P-Wave: Present QRS: Normal ST-T: Normal QT: Normal Comparison: No Change Course - Vital Signs Last Recorded V/S: Last Vital Signs Temp 36.6 C 09/26/16 09:59 Pulse 126 H 09/26/16 09:59 Resp 27 H 09/26/16 09:59 BP 148/96 H 09/26/16 09:59 Pulse Ox 98 09/26/16 12:18 - Orders/Labs/Meds Orders: Active Orders 24 hr Category Date Time Status EKG 12 Lead [EKG Documentation Completion] [RC] STAT Care 09/26/16 10:12 Active RT Aerosol Therapy [RC] ASDIRECTED Care 09/26/16 12:04 Active Sodium Chloride 0.9% [Normal Saline] 1,000 ml Med 09/26/16 12:00 Active IV ASDIRECTED Sodium Chloride 0.9% [Normal Saline] 100 ml Med 09/26/16 12:30 Active IV ASDIRECTED Sodium Chloride 0.9% [Saline Flush] Med 09/26/16 12:26 Active 10 ml FLUSH ONETIME PRN Medication Orders Sodium Chloride (Normal Saline) 1,000 mls @ 150 mls/hr IV ASDIRECTED RADHA Last Admin: 09/26/16 12:06 Dose: 150 mls/hr Sodium Chloride (Normal Saline) 100 mls @ 65 mls/hr IV ASDIRECTED RADHA Last Admin: 09/26/16 12:43 Dose: 65 mls/hr Sodium Chloride (Saline Flush) 10 ml FLUSH ONETIME PRN PRN Reason: IV FLUSH Last Admin: 09/26/16 12:43 Dose: 10 ml Labs: Laboratory Tests 09/26/16 09/26/16 09/26/16 Range/Units 11:02 11:03 11:03 PT 11.1 (8.0-13.0) SECONDS INR 1.02 APTT 28 (22-36) SECONDS D-Dimer, Quantitative 1.78 H (0.19-0.59) mg/L Puncture Site Lt radial ABG pH 7.44 (7.35-7.45) ABG pCO2 38.7 (35.0-45.0) mmHg ABG pO2 57.0 L (80.0-100.0) mmHg ABG HCO3 25.6 (22.0-26.0) meq/L ABG O2 Saturation 88.5 L (96.0-97.0) % ABG Base Excess 1.9 (-2-2.0) Hieu Test Positive A-a Gradient 29 mmHg O2 Delivery Device Room air FiO2 21.00 (21.00-100.00) % Sodium (136-145) mEq/L Potassium (3.5-5.1) mEq/L Chloride (98-107) mEq/L Carbon Dioxide (21-32) mEq/L Anion Gap (5-15) BUN (7-18) mg/dL Creatinine (0.7-1.3) mg/dL Est Cr Clr Drug Dosing Estimated GFR (MDRD) (>60) mL/min BUN/Creatinine Ratio (14-18) Glucose (80-115) mg/dL Calcium (8.5-10.1) mg/dL Total Bilirubin (0.2-1.0) mg/dL AST (15-37) U/L ALT (16-63) U/L Alkaline Phosphatase (46-116) U/L Total Protein (6.4-8.2) g/dl Albumin (3.4-5.0) g/dl Globulin gm/dL Albumin/Globulin Ratio (1-2) 09/26/16 Range/Units 11:03 PT (8.0-13.0) SECONDS INR APTT (22-36) SECONDS D-Dimer, Quantitative (0.19-0.59) mg/L Puncture Site ABG pH (7.35-7.45) ABG pCO2 (35.0-45.0) mmHg ABG pO2 (80.0-100.0) mmHg ABG HCO3 (22.0-26.0) meq/L ABG O2 Saturation (96.0-97.0) % ABG Base Excess (-2-2.0) Hieu Test A-a Gradient mmHg O2 Delivery Device FiO2 (21.00-100.00) % Sodium 142 (136-145) mEq/L Potassium 4.5 (3.5-5.1) mEq/L Chloride 103 (98-107) mEq/L Carbon Dioxide 29 (21-32) mEq/L Anion Gap 14.5 (5-15) BUN 13 (7-18) mg/dL Creatinine 1.0 (0.7-1.3) mg/dL Est Cr Clr Drug Dosing TNP Estimated GFR (MDRD) > 60 (>60) mL/min BUN/Creatinine Ratio 13.0 L (14-18) Glucose 101 (80-115) mg/dL Calcium 8.4 L (8.5-10.1) mg/dL Total Bilirubin 0.5 (0.2-1.0) mg/dL AST 88 H (15-37) U/L ALT 115 H (16-63) U/L Alkaline Phosphatase 176 H (46-116) U/L Total Protein 8.3 H (6.4-8.2) g/dl Albumin 3.4 (3.4-5.0) g/dl Globulin 4.9 gm/dL Albumin/Globulin Ratio 0.7 L (1-2) Meds: Medications Generic Name Dose Route Start Last Admin Trade Name Freq PRN Reason Stop Dose Admin Sodium Chloride 1,000 mls @ 150 mls/hr 09/26/16 12:00 09/26/16 12:06 Normal Saline IV 150 mls/hr ASDIRECTED RADHA Administration Sodium Chloride 100 mls @ 65 mls/hr 09/26/16 12:30 09/26/16 12:43 Normal Saline IV 65 mls/hr ASDIRECTED RADHA Administration Sodium Chloride 10 ml 09/26/16 12:26 09/26/16 12:43 Saline Flush FLUSH 10 ml ONETIME PRN Administration IV FLUSH Discontinued Medications Generic Name Dose Route Start Last Admin Trade Name Freq PRN Reason Stop Dose Admin Albuterol 2.5 mg 09/26/16 12:14 09/26/16 12:18 Proventil Neb Soln NEB 09/26/16 12:15 2.5 mg ONETIME ONE Administration Albuterol/Ipratropium 3 ml 09/26/16 10:37 09/26/16 10:45 Duoneb 3.0-0.5 Mg/3 Ml NEB 09/26/16 10:38 3 ml ONETIME ONE Administration Iopamidol 100 ml 09/26/16 12:26 09/26/16 12:43 [id number] (76%) IVPUSH 09/26/16 12:27 100 ml ONETIME ONE Administration Prednisone 60 mg 09/26/16 10:35 09/26/16 10:43 Prednisone PO 09/26/16 10:36 60 mg ONETIME STA Administration - Re-Assessments/Exams Free Text/Narrative Re-Assessment/Exam: 09/26/16 11:05 The patient has diffuse wheezing throughout his lung rincon, but no crackles or other bronchitic sounds. His cough is predominantly dry, with only occasional white sputum. His symptoms are no worse if he is supine that if he is upright. All of these findings speak against acute bronchitis. The patient does not have a history of lung disease. While not impossible, it would be VERY unusual for a patient to develop asthma at his age. The etiology of his acute bronchospasm is not clear, however, he has sinus tachycardia on his ECG, therefore a pulmonary embolus must be ruled out. I have ordered a D- dimer and an ABG. 09/26/16 12:15 The patient's d-dimer returned elevated at 1.78. I have ordered a CT angiogram of the chest along with coags and a CMP. The patient's lungs have substantially improved after oral prednisone and a DuoNeb, however, they are not entirely clear. I have ordered an additional albuterol neb. 09/26/16 13:29 CT angiogram of the chest is read by Dr. Raymond as: 1. Small subpleural nodules as noted above which are stable from prior chest CT. Follow-up noncontrast chest CT recommended in one year. 2. No findings of pulmonary embolism are seen. 3. Other incidental findings which are stable.\\ 09/26/16 13:38 Following the albuterol neb, the patient's lungs are now almost entirely clear. I will discharge him home. He was prescribed an albuterol MDI and oral prednisone yesterday, but has not yet filled that prescription. I am recommending that he does so. I will refer him to a Principal Process Engineer for PFTs. Departure - Departure Time of Disposition: 13:39 Disposition: Home, Self-Care 01 Condition: Good Clinical Impression: Acute bronchospasm - Discharge Information Referrals: PCP,None [Primary Care Provider] - Karl Morales MD [Ordering Only Provider] - Forms: ED Department Discharge Additional Instructions: You were seen in the emergency room for wheezing with a dry cough. Workup in the ER included blood work, an ABG, an ECG, and a CT angiogram of your chest. Your entire workup was unremarkable. You do not have bronchitis. You do not have pneumonia. You do not have a blood clot in your lungs. The cause of your symptoms is not known, but they improved substantially with albuterol and oral prednisone. You were prescribed an albuterol inhaler and oral prednisone when seen in the ER yesterday. We recommend you fill these prescriptions as soon as possible. Use the albuterol only if needed for wheezing with or without a cough. Use as often as necessary, however, if you require it more often than every 4 hours, you need to be seen by a doctor. Follow-up with the Principal Process Engineer Dr. Browning at the next available appointment. If any other problems, please do not hesitate to return to the ER. - My Orders Last 24 Hours: My Active Orders 09/26/16 10:12 EKG 12 Lead [EKG Documentation Completion] [RC] STAT 09/26/16 12:00 Sodium Chloride 0.9% [Normal Saline] 1,000 ml IV ASDIRECTED 09/26/16 12:04 RT Aerosol Therapy [RC] ASDIRECTED 09/26/16 12:26 Sodium Chloride 0.9% [Saline Flush] 10 ml FLUSH ONETIME PRN 09/26/16 12:30 Sodium Chloride 0.9% [Normal Saline] 100 ml IV ASDIRECTED - Assessment/Plan Last 24 Hours: My Active Orders 09/26/16 10:12 EKG 12 Lead [EKG Documentation Completion] [RC] STAT 09/26/16 12:00 Sodium Chloride 0.9% [Normal Saline] 1,000 ml IV ASDIRECTED 09/26/16 12:04 RT Aerosol Therapy [RC] ASDIRECTED 09/26/16 12:26 Sodium Chloride 0.9% [Saline Flush] 10 ml FLUSH ONETIME PRN 09/26/16 12:30 Sodium Chloride 0.9% [Normal Saline] 100 ml IV ASDIRECTED
[2016-09-26] MEDS ORDERED: Sodium Chloride 0.9% 1,000 ML IV SCH (12:00)
[2016-09-26] MEDS ORDERED: Albuterol 0.042% 1.25 MG/3 ML Neb Soln NEB ONE (12:04)
[2016-09-26] MEDS ORDERED: Albuterol 0.083% 2.5 MG/3 ML Neb Soln NEB ONE (12:14)
[2016-09-26] MEDS ORDERED: Sodium Chloride 0.9% 10 ML Syringe FLUSH PRN (12:26)
[2016-09-26] MEDS ORDERED: Iopamidol 755 Mg/ML 100 ML Bottle IVPUSH ONE (12:26)
[2016-09-26] MEDS ORDERED: Sodium Chloride 0.9% 100 ML IV SCH (12:30)
--- NOTE | 2016-09-26 13:20 | CT ---
CT chest Technique: Multiple axial sections were obtained through the chest. Intravenous contrast was utilized. Study performed as a pulmonary angiogram protocol. Comparison: Previous CT angiogram chest dated 05/28/16. Findings: Pulmonary arteries are moderately well-opacified. No filling defects are appreciated to indicate pulmonary embolism. Coronary artery calcification is seen. Mediastinum and hilar regions show no adenopathy or mass. No axillary adenopathy is seen. No pericardial thickening is seen. Small portion of the visualized upper abdominal structures are within normal limits. Several small calcifications felt compatible with calcified lymph nodes seen at the gastroesophageal junction region. Lung window settings were reviewed which shows a small subpleural nodule within right middle lobe and within the left lung base which is stable from prior chest CT. Lungs otherwise are clear. Scattered degenerative spurring is seen within the spine. Impression: 1. Small subpleural nodules as noted above which are stable from prior chest CT. Follow-up noncontrast chest CT recommended in one year. 2. No findings of pulmonary embolism are seen. 3. Other incidental findings which are stable. Diagnostic code #3
== END 2016-09-26 13:50 | disposition home or self-care (01) ==
LOC: JD.ED 09:55
DX: J98.01 Acute bronchospasm (principal); I10 Essential (primary) hypertension; E03.9 Hypothyroidism, unspecified; Z79.899 Other long term (current) drug therapy; Z87.891 Personal history of nicotine dependence
CPT/HCPCS: 36415; 36600; 71275; 80053; 82803; 85379; 85610; 85730; 93005; 94640; 94664; 96360; 96361; 99285; A9270; J7030; J7040; J7050; Q9967; 99284

== ENCOUNTER 2016-09-27 07:05 | Emergency (ER) | payer OTHER, SELFPAY ==
[2016-09-27] MEDS ORDERED: Sodium Chloride 0.9% 10 ML Syringe FLUSH PRN (07:11)
[2016-09-27] MEDS ORDERED: Albuterol/Ipratropium 3.0-0.5 MG/3 ML Neb Soln NEB ONE (07:12)
[2016-09-27] MEDS ORDERED: Albuterol/Ipratropium 3.0-0.5 MG/3 ML Neb Soln ONE (07:16)
[2016-09-27 07:17] VITALS: BP 153/104
[2016-09-27] MEDS: predniSONE 20 MG Tab PO ONE ×2 (07:32→08:25)
--- NOTE | 2016-09-27 07:59 | EDM.PDOC ---
ED HPI GENERAL MEDICAL PROBLEM - General Chief Complaint: Respiratory Problem Stated Complaint: SOB Time Seen by Provider: 09/27/16 07:11 Source of Information: Reports: Patient History Limitations: Reports: No Limitations - History of Present Illness INITIAL COMMENTS - FREE TEXT/NARRATIVE: The patient presents with wheezing and shortness of breath. He was here the past 2 days for the same. He was given steroids and breathing treatments and he did good. His CXR looked good. His CT of his chest showed stable nodules. He was give prescriptions for albuterol and prednisone but he could not get them filled until tomorrow. His breathing got worse and he presented today. He does smoke. He has a history of bronchitis but no history of asthma or COPD. He has not seen a vocational rehabilitation counselor. Onset: Gradual Duration: Day(s): (5) Severity: Severe Improves with: Reports: None Worsens with: Reports: None Associated Symptoms: Reports: Cough (Dry), Shortness of Breath. Denies: Chest Pain, Fever/Chills, Nausea/Vomiting - Related Data Allergies Allergy/AdvReac Type Severity Reaction Status Date / Time No Known Allergies Allergy Verified 09/27/16 07:13 Home Meds: Home Meds Levothyroxine 125 mcg PO DAILY 07/21/13 [History] Metoprolol Succinate [Toprol XL] 50 mg PO DAILY 07/21/13 [History] Albuterol [IJD: Ventolin HFA] 2 puff INH Q4H PRN #18 gm 05/28/16 [Rx] Albuterol [IJD: Albuterol HFA] 2 puff .XX Q4HR PRN #8 gm 09/25/16 [Rx] Prednisone [IJD: predniSONE] 40 mg PO WITHBREAKFAST #10 tab 09/25/16 [Rx] Past Medical History - Past Health History Medical/Surgical History: Denies Medical/Surgical History HEENT History: Reports: Other (See Below) Other HEENT History: wears glasses Cardiovascular History: Reports: Hypertension Respiratory History: Reports: Asthma, Bronchitis, Recurrent Psychiatric History: Reports: Depression Endocrine/Metabolic History: Reports: Hypothyroidism - Infectious Disease History Infectious Disease History: Reports: Chicken Pox, Mumps Social & Family History - Family History Family Medical History: Noncontributory - Tobacco Use Smoking Status *Q: Former Smoker Years of Tobacco use: 50 Packs/Tins Daily: 1 Used Tobacco, but Quit: Yes Month Tobacco Last Used: 2 months ago Second Hand Smoke Exposure: No - Caffeine Use Caffeine Use: Reports: Coffee - Alcohol Use Days Per Week of Alcohol Use: 6 Number of Drinks Per Day: 2 Total Drinks Per Week: 12 - Recreational Drug Use Recreational Drug Use: No - Living Situation & Occupation Living situation: Reports: , Alone 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[employer]) ED 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 GENERAL - Review of Systems Review Of Systems: See Below Constitutional: Reports: No Symptoms HEENT: Reports: No Symptoms Respiratory: Reports: Shortness of Breath, Wheezing Cardiovascular: Reports: No Symptoms Endocrine: Reports: No Symptoms GI/Abdominal: Reports: No Symptoms : Reports: No Symptoms Musculoskeletal: Reports: No Symptoms Skin: Reports: No Symptoms ED EXAM, GENERAL - Physical Exam Exam: See Below Exam Limited By: No Limitations General Appearance: Moderate Distress Ears: Normal External Exam Nose: Normal Inspection Head: Atraumatic, Normocephalic Neck: Normal Inspection Respiratory/Chest: Respiratory Distress (Moderate), Wheezing Cardiovascular: Regular Rate, Rhythm, No Edema, No Murmur GI/Abdominal: Soft, Non-Tender, No Organomegaly, No Mass Back Exam: Normal Inspection Extremities: Normal Inspection Neurological: Alert, Oriented, No Motor/Sensory Deficits Course - Vital Signs Last Recorded V/S: Last Vital Signs Temp 97.6 F 09/27/16 07:13 Pulse 103 H 09/27/16 07:13 Resp 22 H 09/27/16 07:13 BP 153/104 H 09/27/16 07:13 Pulse Ox 89 L 09/27/16 07:13 - Orders/Labs/Meds Orders: Active Orders 24 hr Category Date Time Status Cardiac Monitoring [RC] . DIRECTED Care 09/27/16 07:11 Active Oxygen Therapy [RC] PRN Care 09/27/16 07:11 Active Peripheral IV Care [RC] . DIRECTED Care 09/27/16 07:12 Active RT Aerosol Therapy [RC] ASDIRECTED Care 09/27/16 07:12 Active RT Post Treatment Assessment [RC] Click To Edit Care 09/27/16 08:05 Active RT Pre-Treatment Assessment [RC] Click To Edit Care 09/27/16 08:05 Active Peripheral IV Insertion Adult [OM.PC] Stat Oth 09/27/16 07:11 Ordered Meds: Medications Discontinued Medications Generic Name Dose Route Start Last Admin Trade Name Estefany PRN Reason Stop Dose Admin Albuterol 1 gm 09/27/16 08:04 Proventil Hfa INH 09/27/16 08:05 ONETIME ONE Albuterol/Ipratropium 3 ml 09/27/16 07:12 09/27/16 07:19 Duoneb 3.0-0.5 Mg/3 Ml NEB 09/27/16 07:13 Not Given ONETIME ONE Albuterol/Ipratropium Confirm 09/27/16 07:16 09/27/16 07:19 Duoneb 3.0-0.5 Mg/3 Ml Administered 09/27/16 07:17 3 ml Dose Administration 3 ml .ROUTE .STK-MED ONE Prednisone 40 mg 09/27/16 07:12 09/27/16 07:32 Prednisone PO 09/27/16 07:13 40 mg ONETIME ONE Administration Sodium Chloride 10 ml 09/27/16 07:11 Saline Flush FLUSH ASDIRECTED PRN Keep Vein Open - Re-Assessments/Exams Free Text/Narrative Re-Assessment/Exam: 09/27/16 08:00 I ordered a duoneb and prednisone 40mg by mouth. 09/27/16 08:05 He is doing much better. He has a mild wheeze now. I will give him 2 puffs of albuterol inhaler and see how he does. 09/27/16 08:20 He is doing better. I will discharge him home. Departure - Departure Time of Disposition: 08:20 Disposition: Home, Self-Care 01 Condition: Good Clinical Impression: Acute bronchospasm - Discharge Information Referrals: Ramses Olivares MD [Physician] - 1 Week Forms: ED Department Discharge Additional Instructions: Use the albuterol inhaler 2 puffs every 4 to 6 hours as needed for shortness of breath. Get the prescription for prednisone tomorrow and take that daily for 5 days. Follow up with Dr Howard next week. You may need pulmonary function tests to see if you have asthma or COPD (chronic obstructive pulmonary disease. ) Pleas return if you are worse. - My Orders Last 24 Hours: My Active Orders 09/27/16 07:11 Cardiac Monitoring [RC] . DIRECTED Oxygen Therapy [RC] PRN Peripheral IV Insertion Adult [OM.PC] Stat 09/27/16 07:12 Peripheral IV Care [RC] . DIRECTED RT Aerosol Therapy [RC] ASDIRECTED 09/27/16 08:05 RT Post Treatment Assessment [RC] Click To Edit RT Pre-Treatment Assessment [RC] Click To Edit - Assessment/Plan Last 24 Hours: My Active Orders 09/27/16 07:11 Cardiac Monitoring [RC] . DIRECTED Oxygen Therapy [RC] PRN Peripheral IV Insertion Adult [OM.PC] Stat 09/27/16 07:12 Peripheral IV Care [RC] . DIRECTED RT Aerosol Therapy [RC] ASDIRECTED 09/27/16 08:05 RT Post Treatment Assessment [RC] Click To Edit RT Pre-Treatment Assessment [RC] Click To Edit
[2016-09-27] MEDS ORDERED: Albuterol 6.7 GM Inhaler INH ONE (08:04)
== END 2016-09-27 08:40 | disposition home or self-care (01) ==
LOC: JD.ED 07:05
DX: J98.01 Acute bronchospasm (principal); I10 Essential (primary) hypertension; J45.909 Unspecified asthma, uncomplicated; F32.9 Major depressive disorder, single episode, unspecified; E03.9 Hypothyroidism, unspecified; Z79.899 Other long term (current) drug therapy; Z87.891 Personal history of nicotine dependence
CPT/HCPCS: 94664; 99285; A9270; 99283

== ENCOUNTER 2016-10-28 20:14 | Emergency (ER) | payer OTHER, SELFPAY ==
[2016-10-28 20:32] VITALS: BP 134/89
[2016-10-28] MEDS ORDERED: predniSONE 10 MG Tab PO ONE (20:58)
[2016-10-28] MEDS ORDERED: Albuterol/Ipratropium 3.0-0.5 MG/3 ML Neb Soln NEB ONE (20:58)
[2016-10-28] MEDS ORDERED: Sodium Chloride 0.9% 10 ML Syringe FLUSH PRN (20:58)
--- NOTE | 2016-10-28 21:55 | EDM.PDOC ---
ED HPI GENERAL MEDICAL PROBLEM - General Chief Complaint: Respiratory Problem Stated Complaint: SOB Time Seen by Provider: 10/28/16 20:45 Source of Information: Reports: Patient, RN Notes Reviewed History Limitations: Reports: No Limitations - History of Present Illness INITIAL COMMENTS - FREE TEXT/NARRATIVE: 66 year old male presents to the ED today with complaints of sudden onset of shortness of breath. He has a cough productive of white sputum. No fever or chills but he does report night sweats. He has a history of reactive air way disease and says the smoke in the air is really bothering him. He has an albuterol inhaler which offers some relief. He quit smoking about 1 month ago. He was in the ER 1 month ago with similar symptoms. PE was ruled out and he was treated with Duonebs and Prednisone. The patient denies chest pain, palpitations , syncope, abdominal pain, nausea or vomiting. - Related Data Allergies Allergy/AdvReac Type Severity Reaction Status Date / Time No Known Allergies Allergy Verified 10/28/16 20:32 Home Meds: Home Meds Albuterol [Proventil HFA] 2 puff INH QID PRN #1 inhaler 10/28/16 [Rx] predniSONE [Prednisone] 20 mg PO BID #10 tablet 10/28/16 [Rx] Past Medical History - Past Health History Medical/Surgical History: Denies Medical/Surgical History HEENT History: Reports: Other (See Below) Other HEENT History: wears glasses Cardiovascular History: Reports: Hypertension Respiratory History: Reports: Asthma, Bronchitis, Recurrent Psychiatric History: Reports: Depression Endocrine/Metabolic History: Reports: Hypothyroidism - Infectious Disease History Infectious Disease History: Reports: Chicken Pox, Mumps Social & Family History - Family History Family Medical History: Noncontributory - Tobacco Use Smoking Status *Q: Former Smoker Years of Tobacco use: 50 Packs/Tins Daily: 1 Used Tobacco, but Quit: Yes Month Tobacco Last Used: unknown Second Hand Smoke Exposure: No - Caffeine Use Caffeine Use: Reports: Coffee - Alcohol Use Days Per Week of Alcohol Use: 6 Number of Drinks Per Day: 2 Total Drinks Per Week: 12 - Recreational Drug Use Recreational Drug Use: No - Living Situation & Occupation Living situation: Reports: , Alone 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 Denies: Fever, Chills Respiratory: Reports: Shortness of Breath, Cough, Sputum. Denies: Pleuritic Chest Pain Cardiovascular: Reports: No Symptoms. Denies: Chest Pain, Edema, Lightheadedness, Palpitations, Syncope GI/Abdominal: Reports: No Symptoms. Denies: Abdominal Pain, Nausea, Vomiting ED EXAM, GENERAL - Physical Exam Exam: See Below Exam Limited By: No Limitations General Appearance: Alert, WD/WN, Mild Distress Throat/Mouth: Normal Inspection, Normal Oropharynx Neck: Normal Inspection, Supple, Non-Tender Respiratory/Chest: No Accessory Muscle Use, Respiratory Distress (mild, SaO2 89 % on room air ), Decreased Breath Sounds, Wheezing (scattered ). No: Crackles, Rales, Rhonchi Cardiovascular: Normal Peripheral Pulses, No Edema, No Murmur, Tachycardia GI/Abdominal: Normal Bowel Sounds, Soft, Non-Tender Neurological: Alert, Oriented, Normal Cognition Skin Exam: Warm, Dry, Intact Course - Vital Signs Last Recorded V/S: Last Vital Signs Temp 97.5 F 10/28/16 20:28 Pulse 110 H 10/28/16 20:28 Resp 18 10/28/16 20:28 BP 134/89 10/28/16 20:28 Pulse Ox 96 10/28/16 21:12 - Orders/Labs/Meds Orders: Active Orders 24 hr Category Date Time Status Peripheral IV Care [RC] . DIRECTED Care 10/28/16 20:58 Inactive RT Aerosol Therapy [RC] ASDIRECTED Care 10/28/16 20:58 Active CXR [Chest 1V Frontal] [CR] Stat Exams 10/28/16 20:57 Taken Labs: Laboratory Tests 10/28/16 10/28/16 Range/Units 21:40 21:40 WBC 6.28 (4.23-9.07) K/mm3 RBC 4.14 L (4.63-6.08) M/mm3 Hgb 14.5 (13.7-17.5) gm/L Hct 42.5 (40.1-51.0) % MCV 102.7 H (79.0-92.2) fl MCH 35.0 H (25.7-32.2) pg MCHC 34.1 (32.2-35.5) g/dl RDW Std Deviation 48.6 H (35.1-43.9) fL Plt Count 149 L (163-337) K/mm3 MPV 9.9 (9.4-12.3) fl Neut % (Auto) 27.0 L (34.0-67.9) % Lymph % (Auto) 52.1 (21.8-53.1) % [place] % (Auto) 11.6 (5.3-12.2) % Eos % (Auto) 6.8 (0.8-7.0) Baso % (Auto) 2.5 H (0.1-1.2) % Neut # (Auto) 1.69 L (1.78-5.38) K/mm3 Lymph # (Auto) 3.27 (1.32-3.57) K/mm3 [place] # (Auto) 0.73 (0.30-0.82) K/mm3 Eos # (Auto) 0.43 (0.04-0.54) K/mm3 Baso # (Auto) 0.16 H (0.01-0.08) K/mm3 Sodium 137 (136-145) mEq/L Potassium 3.9 (3.5-5.1) mEq/L Chloride 101 (98-107) mEq/L Carbon Dioxide 28 (21-32) mEq/L Anion Gap 11.9 (5-15) BUN 14 (7-18) mg/dL Creatinine 1.2 (0.7-1.3) mg/dL Est Cr Clr Drug Dosing TNP Estimated GFR (MDRD) > 60 (>60) mL/min BUN/Creatinine Ratio 11.7 L (14-18) Glucose 93 (80-115) mg/dL Calcium 10.0 (8.5-10.1) mg/dL Total Bilirubin 0.7 (0.2-1.0) mg/dL AST 52 H (15-37) U/L ALT 37 (16-63) U/L Alkaline Phosphatase 93 (46-116) U/L Total Protein 7.6 (6.4-8.2) g/dl Albumin 3.3 L (3.4-5.0) g/dl Globulin 4.3 gm/dL Albumin/Globulin Ratio 0.8 L (1-2) Meds: Medications Discontinued Medications Generic Name Dose Route Start Last Admin Trade Name Freq PRN Reason Stop Dose Admin Albuterol/Ipratropium 3 ml 10/28/16 20:58 10/28/16 21:12 Duoneb 3.0-0.5 Mg/3 Ml NEB 10/28/16 20:59 3 ml ONETIME ONE Administration Prednisone 40 mg 10/28/16 20:58 10/28/16 21:26 Prednisone PO 10/28/16 20:59 40 mg ONETIME ONE Administration Sodium Chloride 10 ml 10/28/16 20:58 Saline Flush FLUSH ASDIRECTED PRN Keep Vein Open - Re-Assessments/Exams Free Text/Narrative Re-Assessment/Exam: Chest x-ray is negative for pulmonary infiltrates or effusions. Chronic changes are stable from previous CXR last month. CBC reveals normal WBC. CMP is unremarkable. Symptoms were treated with Duoneb and Prednisone. Patient had significant improvement in symptoms. Will refill his inhaler and start him on a short course of steroids. He reports that he did not finish his previous Rx for prednisone. He was encouraged to complete the full course. He was instructed to f/u with Dr. Howard as soon as possible for further management of his chronic lung disease. Departure - Departure Time of Disposition: 22:34 Disposition: Home, Self-Care 01 Condition: Good Clinical Impression: Reactive airway disease Qualifiers: Asthma severity: moderate persistent Asthma complication type: with acute exacerbation Qualified Code(s): J45.41 - Moderate persistent asthma with (acute ) exacerbation - Discharge Information Prescriptions: Albuterol [Proventil HFA] 2 puff INH QID PRN #1 inhaler PRN Reason: Cough predniSONE [Prednisone] 20 mg PO BID #10 tablet Referrals: Ramses Olivares MD [Primary Care Provider] - Forms: ED Department Discharge Additional Instructions: Albuterol inhaler 4 times a day as needed for shortness of breath Prednisone 20mg twice a day for 5 days Follow-up with Dr. Howard next week Return to ER with new or worsening symtpoms Avoid being outside for long periods of time due to poor air quality. - My Orders Last 24 Hours: My Active Orders 10/28/16 20:57 CXR [Chest 1V Frontal] [CR] Stat 10/28/16 20:58 Peripheral IV Care [RC] . DIRECTED RT Aerosol Therapy [RC] ASDIRECTED - Assessment/Plan Last 24 Hours: My Active Orders 10/28/16 20:57 CXR [Chest 1V Frontal] [CR] Stat 10/28/16 20:58 Peripheral IV Care [RC] . DIRECTED RT Aerosol Therapy [RC] ASDIRECTED
--- NOTE | 2016-10-29 10:06 | CR ---
Chest: Frontal view of the chest was obtained. Comparison: Previous chest x-ray of 09/25/[address] of 09/26/16. Heart size and mediastinum are normal. Lungs are clear. Bony structures are grossly intact. Impression: 1. Nothing acute is appreciated on frontal chest x-ray. Diagnostic code #1
== END 2016-10-28 22:52 | disposition home or self-care (01) ==
LOC: JD.ED 20:14
DX: J45.41 Moderate persistent asthma with (acute) exacerbation (principal); I10 Essential (primary) hypertension; E03.9 Hypothyroidism, unspecified; Z87.891 Personal history of nicotine dependence
CPT/HCPCS: 36415; 71010; 80053; 85025; 94640; 99285; A9270; 99284

== ENCOUNTER 2016-11-11 01:09 | Emergency (ER) | payer OTHER, SELFPAY ==
[2016-11-11] MEDS ORDERED: Albuterol/Ipratropium 3.0-0.5 MG/3 ML Neb Soln NEB ONE ×2 (01:20)
[2016-11-11] MEDS ORDERED: Sodium Chloride 0.9% 10 ML Syringe FLUSH PRN (01:20)
[2016-11-11] MEDS ORDERED: methylPREDNISolone Sodium Succinate 125 MG/2 ML SDV IVPUSH ONE (01:20)
--- NOTE | 2016-11-11 01:21 | EDM.PDOC ---
ED HPI GENERAL MEDICAL PROBLEM - General Chief Complaint: Respiratory Problem Stated Complaint: SOB Time Seen by Provider: 11/11/16 01:19 Source of Information: Reports: Patient History Limitations: Reports: Respiratory Distress - History of Present Illness INITIAL COMMENTS - FREE TEXT/NARRATIVE: 66 y/o M with hx extensive smoking hx, no formal diagnosis of COPD per patient but multiple visits to ED in past 2 months for wheezing, presents with SOB. Started 5 days ago. Was prescribed albuterol which he hasn't filled. Also prescribed prednisone. Took x 2 days, but hasn't taken it for the past two days for no particular reason. Comes in this evening with severe shortness of breath. + cough,mildly productive. No fever. Denies provoking factors. States he quit smoking. Mild chest discomfort with coughing episodes. Very short of breath, limits history at this time. - Related Data Allergies Allergy/AdvReac Type Severity Reaction Status Date / Time No Known Allergies Allergy Verified 10/28/16 20:32 Home Meds: Home Meds Albuterol [Proventil HFA] 2 puff INH QID PRN #1 inhaler 10/28/16 [Rx] predniSONE [Prednisone] 20 mg PO BID #10 tablet 10/28/16 [Rx] Benzonatate [Tessalon Perles] 100 mg PO TID PRN #30 cap 11/11/16 [Rx] Doxycycline [Vibramycin] 100 mg PO BID #20 cap 11/11/16 [Rx] predniSONE 60 mg PO WITHBREAKFAST #12 tablet 11/11/16 [Rx] Past Medical History - Past Health History Medical/Surgical History: Denies Medical/Surgical History HEENT History: Reports: Other (See Below) Other HEENT History: wears glasses Cardiovascular History: Reports: Hypertension Respiratory History: Reports: Asthma, Bronchitis, Recurrent Psychiatric History: Reports: Depression Endocrine/Metabolic History: Reports: Hypothyroidism - Infectious Disease History Infectious Disease History: Reports: Chicken Pox, Mumps Social & Family History - Family History Family Medical History: Noncontributory - Tobacco Use Smoking Status *Q: Former Smoker Years of Tobacco use: 50 Packs/Tins Daily: 1 Used Tobacco, but Quit: Yes Month Tobacco Last Used: unknown Second Hand Smoke Exposure: No - Caffeine Use Caffeine Use: Reports: Coffee - Alcohol Use Days Per Week of Alcohol Use: 6 Number of Drinks Per Day: 2 Total Drinks Per Week: 12 - Recreational Drug Use Recreational Drug Use: No - Living Situation & Occupation Living situation: Reports: , Alone 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 GENERAL - Review of Systems Review Of Systems: See Below Constitutional: Denies: Fever HEENT: Reports: No Symptoms Respiratory: Reports: Shortness of Breath, Cough Cardiovascular: Reports: Chest Pain Endocrine: Reports: No Symptoms GI/Abdominal: Reports: No Symptoms Musculoskeletal: Reports: No Symptoms Skin: Reports: No Symptoms Neurological: Reports: No Symptoms ED EXAM, GENERAL - Physical Exam Exam: See Below Exam Limited By: No Limitations General Appearance: Alert, Moderate Distress Eye Exam: Bilateral Eye: Normal Inspection Ears: Normal External Exam Nose: Normal Inspection, Normal Mucosa, No Blood Throat/Mouth: Normal Inspection, Normal Oropharynx, Normal Voice Head: Atraumatic, Normocephalic Neck: Normal Inspection, Supple, Non-Tender, Full Range of Motion Respiratory/Chest: Respiratory Distress, Wheezing, Accessory Muscle Use, Prolonged Expiration Cardiovascular: Normal Peripheral Pulses, Regular Rate, Rhythm, No Edema, Tachycardia GI/Abdominal: Soft, Non-Tender, No Distention Back Exam: Normal Inspection Extremities: Normal Inspection Neurological: Alert, Oriented, Normal Cognition, No Motor/Sensory Deficits Psychiatric: Normal Affect, Normal Mood Skin Exam: Warm, Dry, Intact, Normal Color, No Rash Course - Vital Signs Last Recorded V/S: Last Vital Signs Temp 35.7 C 11/11/16 01:11 Pulse 104 H 11/11/16 03:05 Resp 21 H 11/11/16 02:00 BP 143/87 H 11/11/16 01:31 Pulse Ox 88 L 11/11/16 03:05 - Orders/Labs/Meds Orders: Active Orders 24 hr Category Date Time Status EKG 12 Lead [EKG Documentation Completion] [RC] STAT Care 11/11/16 01:19 Active Peripheral IV Care [RC] . DIRECTED Care 11/11/16 01:20 Active RT Aerosol Therapy [RC] ASDIRECTED Care 11/11/16 01:20 Active RT Aerosol Therapy [RC] ASDIRECTED Care 11/11/16 01:20 Active RT Post Treatment Assessment [RC] Click to Edit Care 11/11/16 01:42 Active RT Pre-Treatment Assessment [RC] Click to Edit Care 11/11/16 01:42 Active Chest 1V Frontal [CR] Stat Exams 11/11/16 01:19 Taken CULTURE BLOOD [BC] Stat Lab 11/11/16 02:00 Received CULTURE BLOOD [BC] Stat Lab 11/11/16 02:15 Received Blood Culture x2 Reflex Set [OM.PC] Stat Oth 11/11/16 01:19 Ordered Peripheral IV Insertion Adult [OM.PC] Routine Oth 11/11/16 01:20 Ordered Labs: Laboratory Tests 11/11/16 11/11/16 Range/Units 02:00 02:15 WBC 7.21 (4.23-9.07) K/mm3 RBC 3.72 L (4.63-6.08) M/mm3 Hgb 13.0 L (13.7-17.5) gm/L Hct 38.4 L (40.1-51.0) % MCV 103.2 H (79.0-92.2) fl MCH 34.9 H (25.7-32.2) pg MCHC 33.9 (32.2-35.5) g/dl RDW Std Deviation 47.2 H (35.1-43.9) fL Plt Count 153 L (163-337) K/mm3 MPV 11.0 (9.4-12.3) fl Neut % (Auto) 59.9 (34.0-67.9) % Lymph % (Auto) 35.1 (21.8-53.1) % [place] % (Auto) 4.7 L (5.3-12.2) % Eos % (Auto) 0 L (0.8-7.0) Baso % (Auto) 0.3 (0.1-1.2) % Neut # (Auto) 4.32 (1.78-5.38) K/mm3 Lymph # (Auto) 2.53 (1.32-3.57) K/mm3 [place] # (Auto) 0.34 (0.30-0.82) K/mm3 Eos # (Auto) 0.00 L (0.04-0.54) K/mm3 Baso # (Auto) 0.02 (0.01-0.08) K/mm3 Sodium 137 (136-145) mEq/L Potassium 4.3 (3.5-5.1) mEq/L Chloride 101 (98-107) mEq/L Carbon Dioxide 30 (21-32) mEq/L Anion Gap 10.3 (5-15) BUN 17 (7-18) mg/dL Creatinine 1.3 (0.7-1.3) mg/dL Est Cr Clr Drug Dosing 53.54 mL/min Estimated GFR (MDRD) 56 (>60) mL/min BUN/Creatinine Ratio 13.1 L (14-18) Glucose 134 H (80-115) mg/dL Calcium 9.3 (8.5-10.1) mg/dL Total Bilirubin 0.8 (0.2-1.0) mg/dL AST 42 H (15-37) U/L ALT 37 (16-63) U/L Alkaline Phosphatase 82 (46-116) U/L Troponin I < 0.017 (0.00-0.056) ng/mL Total Protein 7.7 (6.4-8.2) g/dl Albumin 3.4 (3.4-5.0) g/dl Globulin 4.3 gm/dL Albumin/Globulin Ratio 0.8 L (1-2) Meds: Medications Discontinued Medications Generic Name Dose Route Start Last Admin Trade Name Freq PRN Reason Stop Dose Admin Albuterol 1 gm 11/11/16 01:42 11/11/16 02:08 Proventil Hfa INH 11/11/16 01:43 2 puff ONETIME ONE Administration Albuterol/Ipratropium 3 ml 11/11/16 01:20 11/11/16 01:48 Duoneb 3.0-0.5 Mg/3 Ml NEB 11/11/16 01:21 Not Given ONETIME ONE Albuterol/Ipratropium 3 ml 11/11/16 01:20 11/11/16 01:48 Duoneb 3.0-0.5 Mg/3 Ml NEB 11/11/16 01:21 Not Given ONETIME ONE Albuterol/Ipratropium Confirm 11/11/16 01:25 11/11/16 01:37 Duoneb 3.0-0.5 Mg/3 Ml Administered 11/11/16 01:26 6 ml Dose Administration 6 ml .ROUTE .STK-MED ONE Benzonatate 200 mg 11/11/16 02:15 11/11/16 02:20 Tessalon Perles PO 11/11/16 02:16 200 mg ONETIME ONE Administration Doxycycline Hyclate 100 mg 11/11/16 02:08 11/11/16 02:29 Vibramycin PO 11/11/16 02:09 100 mg ONETIME ONE Administration Methylprednisolone Sodium Succinate 125 mg 11/11/16 01:20 11/11/16 01:24 Solu-Medrol IVPUSH 11/11/16 01:21 125 mg ONETIME ONE Administration Methylprednisolone Sodium Succinate Confirm 11/11/16 01:29 11/11/16 01:30 Solu-Medrol Administered 11/11/16 01:30 Not Given Dose 125 mg .ROUTE .STK-MED ONE Sodium Chloride 10 ml 11/11/16 01:20 11/11/16 02:22 Saline Flush FLUSH 10 ml ASDIRECTED PRN Administration Keep Vein Open - Re-Assessments/Exams Free Text/Narrative Re-Assessment/Exam: 11/11/16 02:09 Feeling much better after 2 albuterol/ipratropium nebulizer treatments. No able to speak in full sentences. Oxygen saturations in the low 90s. He hasn't filled his albuterol inhaler due to financial issues. He is currently uninsured and is trying to make it until he 67 and qualifies for Medicare. Clarifies that he's been ill for about a week, started the prednisone 3 days ago and took 2 doses but forgot to take it today. Hasn't had any albuterol at home. Hasn't seen his primary doctor for this current illness. States that he did see a staple laster who told him that he did not have bronchitis. I do suspect that he does based on his presentation tonight and his multiple ED visits for similar. Given his marked improvement, we'll plan to discharge on doxycycline, prednisone, and albuterol. Respiratory therapy showed him how to use an albuterol inhaler properly. 11/11/16 02:11 EKG shows sinus tachycardia, nonspecific T-wave flattening. 11/11/16 02:35 SpO2 89-91 on RA. Breathing comfortably. Wheezing much improved. CXR shows no infiltrate at this time. CBC normal. Departure - Departure Time of Disposition: 03:00 Disposition: Home, Self-Care 01 Clinical Impression: COPD exacerbation, Bronchitis - Discharge Information Prescriptions: Benzonatate [Tessalon Perles] 100 mg PO TID PRN #30 cap PRN Reason: Cough Doxycycline [Vibramycin] 100 mg PO BID #20 cap predniSONE 60 mg PO WITHBREAKFAST #12 tablet Instructions: Chronic Obstructive Pulmonary Disease, [id number] Referrals: Ramses Olivares MD [Primary Care Provider] - Forms: ED Department Discharge Additional Instructions: 1. Take prednisone as prescribed 2. Take doxycycline as prescribed 3. Use albuterol every 1-2 hours as needed for wheezing/shortness of breath 4. Follow up with your primary care provider as soon as possible, ideally before the weekend 5. Return to the Emergency Department if you have worsening shortness of breath or any other concerning symptoms - My Orders Last 24 Hours: My Active Orders 11/11/16 01:19 EKG 12 Lead [EKG Documentation Completion] [RC] STAT Chest 1V Frontal [CR] Stat Blood Culture x2 Reflex Set [OM.PC] Stat 11/11/16 01:20 Peripheral IV Care [RC] . DIRECTED RT Aerosol Therapy [RC] ASDIRECTED RT Aerosol Therapy [RC] ASDIRECTED Peripheral IV Insertion Adult [OM.PC] Routine 11/11/16 01:42 RT Post Treatment Assessment [RC] Click to Edit RT Pre-Treatment Assessment [RC] Click to Edit 11/11/16 02:00 CULTURE BLOOD [BC] Stat 11/11/16 02:15 CULTURE BLOOD [BC] Stat - Assessment/Plan Last 24 Hours: My Active Orders 11/11/16 01:19 EKG 12 Lead [EKG Documentation Completion] [RC] STAT Chest 1V Frontal [CR] Stat Blood Culture x2 Reflex Set [OM.PC] Stat 11/11/16 01:20 Peripheral IV Care [RC] . DIRECTED RT Aerosol Therapy [RC] ASDIRECTED RT Aerosol Therapy [RC] ASDIRECTED Peripheral IV Insertion Adult [OM.PC] Routine 11/11/16 01:42 RT Post Treatment Assessment [RC] Click to Edit RT Pre-Treatment Assessment [RC] Click to Edit 11/11/16 02:00 CULTURE BLOOD [BC] Stat 11/11/16 02:15 CULTURE BLOOD [BC] Stat
[2016-11-11] MEDS ORDERED: Albuterol/Ipratropium 3.0-0.5 MG/3 ML Neb Soln ONE (01:25)
[2016-11-11] MEDS ORDERED: methylPREDNISolone Sodium Succinate 125 MG/2 ML SDV ONE (01:29)
[2016-11-11] MEDS ORDERED: Albuterol 6.7 GM Inhaler INH ONE (01:42)
[2016-11-11] MEDS ORDERED: Doxycycline 100 MG Cap PO ONE (02:08)
[2016-11-11] MEDS ORDERED: Benzonatate 100 MG Cap PO ONE (02:15)
[2016-11-11 02:40] VITALS: BP 143/87
--- NOTE | 2016-11-12 10:32 | CR ---
Chest: Portable view of the chest was obtained. Comparison: Previous chest x-ray of 10/28/16. Heart size is normal. Mild tortuosity of the thoracic aorta is seen. Lungs are clear. Minimal scoliosis noted within the spine with slight degenerative spurring. Impression: 1. Incidental findings. Nothing acute is identified on portable chest x-ray. Diagnostic code #2
== END 2016-11-11 03:37 | disposition home or self-care (01) ==
LOC: JD.ED 01:09
DX: J44.1 Chronic obstructive pulmonary disease with (acute) exacerbation (principal); J40 Bronchitis, not specified as acute or chronic; Z87.891 Personal history of nicotine dependence
CPT/HCPCS: 36415; 71010; 80053; 84484; 85025; 87040; 93005; 94640; 94664; 96374; 99285; A9270; J2930; J7050; 99284

== ENCOUNTER 2016-12-21 23:07 | Emergency (ER) | payer SELFPAY ==
[2016-12-21] MEDS ORDERED: Albuterol/Ipratropium 3.0-0.5 MG/3 ML Neb Soln NEB ONE (23:17)
[2016-12-21] MEDS ORDERED: methylPREDNISolone Sodium Succinate 125 MG/2 ML SDV IVPUSH ONE (23:18)
[2016-12-21 23:20] VITALS: BP 152/80
--- NOTE | 2016-12-21 23:22 | EDM.PDOC ---
ED HPI GENERAL MEDICAL PROBLEM - General Chief Complaint: Respiratory Problem Stated Complaint: SOB Time Seen by Provider: 12/21/16 23:14 Source of Information: Reports: Patient History Limitations: Reports: Respiratory Distress (Speak in 3-4 word sentences. ) - History of Present Illness INITIAL COMMENTS - FREE TEXT/NARRATIVE: 66-year-old male arrives in the ED extremely short of breath and diaphoretic cool and clammy. He has known COPD with obvious acute exacerbation. He was seen in the clinic yesterday by Dr. Howard and placed back on prednisone orally in the low dose. Patient is unable to afford a corticosteroid inhalational treatment program due to financial barriers. He is cough is mostly that of a white sputum without any hemoptysis. Denies any fever chills or feeling like a cold as come on. He is appreciated shoveling this light snow the other day set off quite a significant asthma attack. He was started on low-dose prednisone tablets yesterday but he didn't fill the prescription yet. He states tonight his breathing became so bad he didn't think he was going to make it. Onset: Sudden Onset Date: 12/20/16 Duration: Hour(s): Location: Reports: Chest (Can't breathe.) Quality: Reports: Other Severity: Severe (Severe respiratory distress unable to breathe.) Improves with: Reports: Medication (Inhalational medication) Worsens with: Reports: Other, Movement Context: Reports: Other (Was doing nothing special tonight.). Denies: Activity (Exertion.), Exercise, Lifting, Sick Contact, Trauma Associated Symptoms: Reports: Chest Pain, Cough (Him heaviness in his upper anterior chest.), cough w sputum, Diaphoresis (80 sputum if anything is produced.), Malaise, Shortness of Breath, Weakness. 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 (see below) (Albuterol inhaler.) - Related Data Allergies Allergy/AdvReac Type Severity Reaction Status Date / Time No Known Allergies Allergy Verified 12/21/16 23:15 Home Meds: Home Meds Albuterol [Proventil HFA] 2 puff INH QID PRN #1 inhaler 10/28/16 [Rx] predniSONE [Prednisone] 20 mg PO BID #10 tablet 10/28/16 [Rx] Benzonatate [Tessalon Perles] 100 mg PO TID PRN #30 cap 11/11/16 [Rx] Doxycycline [Vibramycin] 100 mg PO BID #20 cap 11/11/16 [Rx] predniSONE 60 mg PO WITHBREAKFAST #12 tablet 11/11/16 [Rx] Albuterol/Ipratropium [DuoNeb 3.0-0.5 MG/3 ML] 3 ml NEB Q6HRRT #40 neb 12/22/16 [Rx] Past Medical History - Past Health History Medical/Surgical History: Denies Medical/Surgical History HEENT History: Reports: Other (See Below) Other HEENT History: wears glasses Cardiovascular History: Reports: Hypertension Respiratory History: Reports: Asthma, Bronchitis, Recurrent, COPD Psychiatric History: Reports: Depression Endocrine/Metabolic History: Reports: Hypothyroidism - Infectious Disease History Infectious Disease History: Reports: Chicken Pox, Mumps Social & Family History - Family History Family Medical History: Noncontributory - Tobacco Use Smoking Status *Q: Former Smoker Years of Tobacco use: 50 Packs/Tins Daily: 1 Used Tobacco, but Quit: Yes Month Tobacco Last Used: unknown Second Hand Smoke Exposure: No - Caffeine Use Caffeine Use: Reports: Coffee - Alcohol Use Days Per Week of Alcohol Use: 6 Number of Drinks Per Day: 2 Total Drinks Per Week: 12 - Recreational Drug Use Recreational Drug Use: No - Living Situation & Occupation Living situation: Reports: , Alone 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 Denies: Fever, Chills, Weight Loss HEENT: Reports: No Symptoms Respiratory: Reports: Shortness of Breath, Wheezing, Cough, Sputum. Denies: Pleuritic Chest Pain, Hemoptysis (White in color) Cardiovascular: Reports: Chest Pain, Blood Pressure Problem (Upper anterior chest heaviness.), Dyspnea on Exertion (Chronically especially when exposed to cold air.). Denies: Claudication, Edema, Lightheadedness, Orthopnea ( Mild hypertension) Endocrine: Reports: Fatigue GI/Abdominal: Reports: No Symptoms : Reports: Frequency, Other (Nocturia usually 2.) Musculoskeletal: Reports: Back Pain, Joint Pain (Knees and hips at times.) Skin: Reports: No Symptoms Neurological: Reports: No Symptoms Psychiatric: Reports: No Symptoms Hematologic/Lymphatic: Reports: No Symptoms Immunologic: Reports: No Symptoms ED EXAM, GENERAL - Physical Exam Exam: See Below Exam Limited By: Respiratory Distress (Can speak in 2-4 sentences.) General Appearance: Alert, Severe Distress (Severe respiratory distress. Has to sit up and lean over the table to breathe.), Other (He was cool and diaphoretic) Eye Exam: Bilateral Eye: Normal Inspection Ears: Normal External Exam, Normal TMs Nose: Normal Inspection, Normal Mucosa Throat/Mouth: Normal Inspection, Normal Lips, Normal Oropharynx Head: Atraumatic, Normocephalic Neck: Normal Inspection, Supple, Non-Tender, Full Range of Motion. No: Lymphadenopathy (L), Lymphadenopathy (R) Respiratory/Chest: Respiratory Distress, Decreased Breath Sounds (Severe respiratory distress since posteriorly.), Wheezing. No: Crackles, Rales, Rhonchi Cardiovascular: No Gallop, No Murmur, No Rub, Tachycardia (Sinus tachycardia 140 /m.). No: Normal Peripheral Pulses Peripheral Pulses: 1+: Posterior Tibial (L), Posterior Tibial (R), Dorsalis Pedis (L), Dorsalis Pedis (R) GI/Abdominal: Distended (Tympany to percussion and mildly distended in the epigastrium compatible with aerophagia.), Abnormal Bowel Sounds (Mildly hyperactive bowel sounds throughout.) (Male) Exam: No Hernia Back Exam: Normal Inspection, Full Range of Motion. No: CVA Tenderness (L), CVA Tenderness (R) Extremities: Normal Inspection, Normal Range of Motion, Non-Tender, No Pedal Edema Neurological: Alert, Oriented, CN II-XII Intact, Normal Cognition. No: Normal Gait Psychiatric: Anxious Skin Exam: Intact, Cool, Diaphoretic, Pallor EKG INTERPRETATION EKG Date: 12/21/16 Time: 23:30 Rhythm: Other (Frequent PVCs.) Rate (Beats/Min): 132 Isaban: LAD-Left Isaban Deviation (Mild left axis deviation of -15) P-Wave: Enlarged (Suspect left atrial hypertrophy.) QRS: Other (Decreased voltage in both limb and precordial leads. There is abnormal R wave progression with early R-wave transition suggesting septal hypertrophy or right ventricular particular.) ST-T: Other (Q waves in leads 3 and near Q waves in lead aVF. Consider possible old inferior wall myocardial infarction) QT: Prolonged (Mildly prolonged) EKG Interpretation Comments: Abnormal ECG. Course - Vital Signs Last Recorded V/S: Last Vital Signs Temp 35.2 C 12/21/16 23:15 Pulse 136 H 12/21/16 23:15 Resp 40 H 12/21/16 23:15 BP 152/80 H 12/21/16 23:15 Pulse Ox 96 12/22/16 00:46 - Orders/Labs/Meds Labs: Laboratory Tests 12/21/16 12/21/16 12/21/16 Range/Units 23:19 23:35 23:35 WBC 8.39 (4.23-9.07) K/mm3 RBC 3.47 L (4.63-6.08) M/mm3 Hgb 11.7 L (13.7-17.5) gm/L Hct 36.7 L (40.1-51.0) % MCV 105.8 H (79.0-92.2) fl MCH 33.7 H (25.7-32.2) pg MCHC 31.9 L (32.2-35.5) g/dl RDW Std Deviation 47.6 H (35.1-43.9) fL Plt Count 265 (163-337) K/mm3 MPV 9.2 L (9.4-12.3) fl Neutrophils % (Manual) 44 (40-60) % Band Neutrophils % 0 (0-10) % Lymphocytes % (Manual) 53 H (20-40) % Atypical Lymphs % 0 % Immat Monocytes % (Man) 0 Monocytes % (Manual) 2 (2-10) % Eosinophils % (Manual) 1 (0.8-7.0) % Basophils % (Manual) 0 L (0.2-1.2) Metamyelocytes % 0 Myelocytes % 0 Promyelocytes % 0 Blast Cells % 0 Plasma Cell % (Manual) 0 Nucleated RBCs 0.0 % Platelet Estimate Adequate Anisocytosis 1+ slight Macrocytosis 1+ slight RBC Morph Comment Not Reportable PT 10.5 (8.0-13.0) SECONDS INR 0.97 Puncture Site Rt radial ABG pH 7.33 L (7.35-7.45) ABG pCO2 43.7 (35.0-45.0) mmHg ABG pO2 84.0 (80.0-100.0) mmHg ABG HCO3 22.6 (22.0-26.0) meq/L ABG O2 Saturation 96.8 (96.0-97.0) % ABG Base Excess -2.7 L (-2-2.0) A-a Gradient 92 mmHg O2 Delivery Device Nasal cannula Oxygen Flow Rate 4.0 FiO2 38.00 (21.00-100.00) % Sodium (136-145) mEq/L Potassium (3.5-5.1) mEq/L Chloride (98-107) mEq/L Carbon Dioxide (21-32) mEq/L Anion Gap (5-15) BUN (7-18) mg/dL Creatinine (0.7-1.3) mg/dL Est Cr Clr Drug Dosing mL/min Estimated GFR (MDRD) (>60) mL/min BUN/Creatinine Ratio (14-18) Glucose (80-115) mg/dL Calcium (8.5-10.1) mg/dL Magnesium (1.8-2.4) mg/dl Total Bilirubin (0.2-1.0) mg/dL AST (15-37) U/L ALT (16-63) U/L Alkaline Phosphatase (46-116) U/L CK-MB (CK-2) (0-3.6) ng/ml Troponin I (0.00-0.056) ng/mL NT-Pro-B Natriuret Pep (0-125) pg/mL Total Protein (6.4-8.2) g/dl Albumin (3.4-5.0) g/dl Globulin gm/dL Albumin/Globulin Ratio (1-2) 12/21/16 Range/Units 23:35 WBC (4.23-9.07) K/mm3 RBC (4.63-6.08) M/mm3 Hgb (13.7-17.5) gm/L Hct (40.1-51.0) % MCV (79.0-92.2) fl MCH (25.7-32.2) pg MCHC (32.2-35.5) g/dl RDW Std Deviation (35.1-43.9) fL Plt Count (163-337) K/mm3 MPV (9.4-12.3) fl Neutrophils % (Manual) (40-60) % Band Neutrophils % (0-10) % Lymphocytes % (Manual) (20-40) % Atypical Lymphs % % Immat Monocytes % (Man) Monocytes % (Manual) (2-10) % Eosinophils % (Manual) (0.8-7.0) % Basophils % (Manual) (0.2-1.2) Metamyelocytes % Myelocytes % Promyelocytes % Blast Cells % Plasma Cell % (Manual) Nucleated RBCs % Platelet Estimate Anisocytosis Macrocytosis RBC Morph Comment PT (8.0-13.0) SECONDS INR Puncture Site ABG pH (7.35-7.45) ABG pCO2 (35.0-45.0) mmHg ABG pO2 (80.0-100.0) mmHg ABG HCO3 (22.0-26.0) meq/L ABG O2 Saturation (96.0-97.0) % ABG Base Excess (-2-2.0) A-a Gradient mmHg O2 Delivery Device Oxygen Flow Rate FiO2 (21.00-100.00) % Sodium 142 (136-145) mEq/L Potassium 3.8 (3.5-5.1) mEq/L Chloride 105 (98-107) mEq/L Carbon Dioxide 28 (21-32) mEq/L Anion Gap 12.8 (5-15) BUN 19 H (7-18) mg/dL Creatinine 1.4 H (0.7-1.3) mg/dL Est Cr Clr Drug Dosing 49.84 mL/min Estimated GFR (MDRD) 51 (>60) mL/min BUN/Creatinine Ratio 13.6 L (14-18) Glucose 128 H (80-115) mg/dL Calcium 9.5 (8.5-10.1) mg/dL Magnesium 1.8 (1.8-2.4) mg/dl Total Bilirubin 0.3 (0.2-1.0) mg/dL AST 14 L (15-37) U/L ALT 22 (16-63) U/L Alkaline Phosphatase 82 (46-116) U/L CK-MB (CK-2) 2.2 (0-3.6) ng/ml Troponin I < 0.017 (0.00-0.056) ng/mL NT-Pro-B Natriuret Pep 125 (0-125) pg/mL Total Protein 8.2 (6.4-8.2) g/dl Albumin 3.5 (3.4-5.0) g/dl Globulin 4.7 gm/dL Albumin/Globulin Ratio 0.7 L (1-2) Meds: Medications Discontinued Medications Generic Name Dose Route Start Last Admin Trade Name Estefany PRN Reason Stop Dose Admin Albuterol/Ipratropium 3 ml 12/21/16 23:17 12/22/16 00:19 Duoneb 3.0-0.5 Mg/3 Ml NEB 12/21/16 23:18 3 ml ONETIME ONE Administration Albuterol/Ipratropium Confirm 12/22/16 00:46 12/22/16 00:46 Duoneb 3.0-0.5 Mg/3 Ml Administered 12/22/16 00:47 3 ml Dose Administration 3 ml .ROUTE .STK-MED ONE Sodium Chloride 1,000 mls @ 100 mls/hr 12/21/16 23:30 12/21/16 23:25 Normal Saline IV 100 mls/hr ASDIRECTED RADHA Administration Methylprednisolone Sodium Succinate 125 mg 12/21/16 23:18 12/21/16 23:25 Solu-Medrol IVPUSH 12/21/16 23:19 125 mg ONETIME ONE Administration - Radiology Interpretation Free Text/Narrative:: 66-year-old male with asthma/COPD presents to the ED with an acute exacerbation of his disease process. He is in extremist at time of presentation. He is cool clammy diaphoretic sinus tachycardia at 1 40/m with respiratory rate of over 40/ m and O2 sats in the low 80s. Placed immediately on oxygen at 4 L/m by nasal cannula which brought them up over 90. Treated with DuoNeb which opened him up quite nicely. He will receive Solu-Medrol 125 mg IV to labs will be obtained one view chest x-ray will be obtained. The reason for acute exacerbation is unclear. He had seen his primary care physician yesterday and was prescribed low -dose prednisone which is the plan to leave him on low-dose daily since he cannot afford steroid inhalational treatment. He did not cook pickled meat that prescription yet. ABGs will also be done. - Re-Assessments/Exams Free Text/Narrative Re-Assessment/Exam: 12/21/16 23;10: 66-year-old male presents the ED with acute exacerbation of his COPD. He states he simply couldn't get his breath. He was seen earlier in the day by Dr. Howard and prescribed prednisone which was not able to fill. Not been able to get any relief with his home nebulizers tonight. Doesn't really feel like he contracted a cold and it's unclear therefore with the triggers for his acute exacerbation. He continues to smoke cigarettes and has chronic COPD. He is not on oxygen at home. He is diaphoretic cool and clammy and has to sit up to breathe. O2 sats were in the low 80s on initial assessment. Placed on oxygen at 4 L/m by nasal cannula. Sats came up to around 92%. Respiratory rate was in the high 40s. Sinus tachycardia in the 135 area. Responded well to initial dose of DuoNeb. He will be for routine labs as well as a portable chest x-ray. Given Solu-Medrol 125 mg IV. ABGs will also be done. 12/22/16 00:44 much better air entry after the first treatment with DuoNeb. He still has some bilateral expiratory wheezes at the bases of each lung. Will repeat DuoNeb. Will reduce his oxygen 2 2 L/m by nasal prongs. Chest x-ray revealed poor inspirational effort and some infiltrate in the right lower lobe which may or may not represent the beginnings of pneumonia. He is afebrile however and it's unlikely that this represents a bacterial infection. Will await his labs. 12/22/16 01:14Labs are back revealing a white count of 8.39 with a 53% lymphocyte count suggesting viral infection. Neutrophils were 44% with no bands hemoglobin is mildly low 11.7 hematocrit is 36.7 MCV is elevated at 105.8. The etiology of this is unclear. PT is 10.5 with an INR of 0.97. His ABGs revealed a pH of 7.33 with 43.7 PCO2 and 84 by mouth 2. This is on 4 L/m by nasal cannula. Chemistry shows a sodium of 142 potassium 3.8 chloride 105 bicarbonate 28. Anion gap normal at 12.8 B1 was 19 creatinine is 1.4. His EGFR is 51. Glucose is 128. Magnesium normal at 1.8. Liver function normal troponin I is less than 0.017 CK-MB fraction was 2.2. BNP is 125. Therefore his symptoms are purely that of COPD exacerbation. Likely viral etiology. He remains afebrile. 12/22/16 01:27 he has been able to fall asleep now and feels much improved in terms ability to get his air. I Will turn his oxygen down to 2 L/m and see how his sats do. 12/22/16 01:49 O2 stats are around 96% on 2 L/m. Patient is very drowsy and sleepy to do the time of day and he will be allowed to sleep in the ED and I'll reexamine him in 3-4 hours. The steroids will take about that long to start to work at any rate. He cannot take a steroid inhaler due to the financial barriers. 12/22/16 04:46 oxygen is been discontinued completely any rate remains irregular between 91-96% depending on how deeply sleeping. BP is 118/72. He continues to run a sinus tachycardia at 110-- 112/m. Respiratory rate is 11. Minute. It may be cheaper for him to obtain a nebulizer machine for home use and use DuoNeb when necessary for acute asthma relief. 12/22/16 06:24 patient had a good sleep in the ED and off oxygen for the last 3 hours and maintain oxygen greater than 92%. I'm going to discharge her with a prescription for a nebulizer machine and to use DuoNeb's on a when necessary basis for exacerbation of asthma since it seemed to work so well in the ED. He will still take the prednisone prescribed by Dr. Howard earlier yesterday and for a short course of time and follow-up with him in 10 days' time. On my assessment in the ED when he woke up his lungs remain completely clear to auscultation. unclear trigger to have set off his acute exacerbation at this time. He'll be following up with Dr. Mott - Departure Time of Disposition: 06:25 Disposition: Home, Self-Care 01 Condition: Fair Clinical Impression: Acute exacerbation of COPD with asthma - Discharge Information Prescriptions: Albuterol/Ipratropium [DuoNeb 3.0-0.5 MG/3 ML] 3 ml NEB Q6HRRT #40 neb Instructions: Asthma, Adult Referrals: Ramses Olivares MD [Primary Care Provider] - Forms: ED Department Discharge Additional Instructions: Evaluation in the emergency room overnight due to acute exacerbation of asthma/ COPD. Trigger appears to be viral by looking at lab work. You're treated with DuoNeb 2 half hour apart with marked improvement in airflow and oxygen levels. There are monitors in the ED overnight and weaned off oxygen and did well. He did receive a dose of intravenous steroids while in the ED. You need to fill the prescription previously written by Dr. Howard yesterday for prednisone and start this today. I would suggest purchasing a nebulizer machine from [employer] and using DuoNeb Nebules like he received in the emergency room tonight as needed for relief of asthma symptoms. They can be used 1 every 6 hours if so required. I would suggest follow-up with Dr. Howard in 10 days' time.
[2016-12-21] MEDS ORDERED: Sodium Chloride 0.9% 1,000 ML IV SCH (23:30)
[2016-12-22] MEDS ORDERED: Albuterol/Ipratropium 3.0-0.5 MG/3 ML Neb Soln ONE (00:46)
--- NOTE | 2016-12-22 07:38 | CR ---
Chest: Portable view of the chest was obtained. Comparison: Prior chest x-ray of 11/11 17. Heart size and mediastinum are within normal limits. Lungs are clear. Bony structures are within normal limits for the patient's age. Impression: 1. Nothing acute is seen on portable chest x-ray. Diagnostic code #1
== END 2016-12-22 06:39 | disposition home or self-care (01) ==
LOC: JD.ED 23:07
DX: J44.1 Chronic obstructive pulmonary disease with (acute) exacerbation (principal); I10 Essential (primary) hypertension; E03.9 Hypothyroidism, unspecified; Z87.891 Personal history of nicotine dependence
CPT/HCPCS: 36415; 36600; 71010; 80053; 82553; 82803; 83735; 83880; 84484; 85025; 85610; 93005; 94640; 96361; 96374; 99285; J2930; J7040; 93010; 99284

== ENCOUNTER 2017-02-07 11:11 | Emergency (ER) | payer SELFPAY ==
[2017-02-07] MEDS ORDERED: Sodium Chloride 0.9% 10 ML Syringe FLUSH PRN ×2 (11:27→14:25)
[2017-02-07] MEDS ORDERED: methylPREDNISolone Sodium Succinate 125 MG/2 ML SDV IVPUSH ONE (11:27)
[2017-02-07] MEDS ORDERED: Albuterol/Ipratropium 3.0-0.5 MG/3 ML Neb Soln NEB ONE (11:27)
[2017-02-07] MEDS ORDERED: Magnesium Sulfate/Water 2 GM in Premix Bag 1 BAG IV ONE (11:28)
--- NOTE | 2017-02-07 11:36 | EDM.PDOC ---
ED HPI GENERAL MEDICAL PROBLEM - General Chief Complaint: Respiratory Problem Stated Complaint: SOB COUGH Time Seen by Provider: 02/07/17 11:18 Source of Information: Reports: Patient History Limitations: Reports: Respiratory Distress - History of Present Illness INITIAL COMMENTS - FREE TEXT/NARRATIVE: Patient is a 66-year-old male with a history of COPD diagnosed one year ago who presents to the ED complaining of shortness of breath and productive cough. Patient has been utilizing albuterol inhaler and also a steroid inhaler of unknown name. States he ran out of both inhalers approximately 2 weeks ago and has not had the money to pay for additional inhalers. This morning approximately 5:30 awoke coughing to which he normally does. Normally he is able to cough up all the phlegm but this morning he is unable to and thus has worsening shortness of breath with wheezing present. Patient has a long history of smoking and recently quit 3 months ago. He continues to have shortness of breath daily with productive cough. With examination he is very short of breath speaking in only 3-4 word sentences thus history is limited. He denies any fever , chills, nausea/vomiting, chest pain, abdominal pain, dizziness, rash, or any additional complaints. He did receive the flu vaccination. Denies any history of receiving the pneumococcal vaccination. - Related Data Allergies Allergy/AdvReac Type Severity Reaction Status Date / Time No Known Allergies Allergy Verified 02/07/17 11:18 Home Meds: Home Meds Benzonatate [Tessalon Perles] 100 mg PO TID PRN #30 cap 11/11/16 [Rx] Albuterol [Proventil HFA] 2 puff INH QID PRN #1 inhaler 02/07/17 [Rx] Clonazepam. 1 tab PO DAILY PRN 02/07/17 [History] Doxycycline [Vibramycin] 100 mg PO Q12HR #14 cap 02/07/17 [Rx] Levothyroxine. 1 tab PO DAILY 02/07/17 [History] Prednisone [IJD: predniSONE] 40 mg PO WITHBREAKFAST #10 tab 02/07/17 [Rx] Past Medical History - Past Health History Medical/Surgical History: Denies Medical/Surgical History HEENT History: Reports: Other (See Below) Other HEENT History: wears glasses Cardiovascular History: Reports: Hypertension Respiratory History: Reports: Asthma, Bronchitis, Recurrent, COPD Psychiatric History: Reports: Depression Endocrine/Metabolic History: Reports: Hypothyroidism - Infectious Disease History Infectious Disease History: Reports: Chicken Pox, Mumps Social & Family History - Family History Family Medical History: Noncontributory - Tobacco Use Smoking Status *Q: Former Smoker Years of Tobacco use: 30 Packs/Tins Daily: 1.5 Used Tobacco, but Quit: Yes Month Tobacco Last Used: 3 months Second Hand Smoke Exposure: No - Caffeine Use Caffeine Use: Reports: Coffee - Alcohol Use Days Per Week of Alcohol Use: 6 Number of Drinks Per Day: 2 Total Drinks Per Week: 12 - Recreational Drug Use Recreational Drug Use: No - Living Situation & Occupation Living situation: Reports: , Alone 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 Denies: Pleuritic Chest Pain, Hemoptysis Cardiovascular: Reports: Dyspnea on Exertion. Denies: Chest Pain, Lightheadedness, Palpitations, Syncope GI/Abdominal: Reports: No Symptoms Musculoskeletal: Reports: No Symptoms Skin: Reports: No Symptoms Neurological: Reports: No Symptoms ED EXAM, GENERAL - Physical Exam Exam: See Below Exam Limited By: Respiratory Distress (Speaking in 3-4 word sentences) General Appearance: Alert, WD/WN, Moderate Distress Ears: Hearing Grossly Normal Nose: Normal Inspection, Normal Mucosa, No Blood Throat/Mouth: Normal Inspection, Normal Oropharynx, Normal Voice, No Airway Compromise Head: Atraumatic, Normocephalic Neck: Normal Inspection, Supple Respiratory/Chest: Respiratory Distress, Rhonchi (Left lower lung field, right middle and lower lobe), Wheezing (Throughout all lung rincon) Cardiovascular: Normal Peripheral Pulses, Tachycardia Peripheral Pulses: 4+: Radial (L), Radial (R) GI/Abdominal: Normal Bowel Sounds, Soft, Non-Tender, No Organomegaly, No Distention Extremities: Normal Inspection, Non-Tender, No Pedal Edema, Normal Capillary Refill Neurological: Alert, Oriented, CN II-XII Intact, Normal Cognition, No Motor/ Sensory Deficits Psychiatric: Normal Affect, Normal Mood Skin Exam: Warm, Dry, Intact, Normal Color Course - Vital Signs Last Recorded V/S: Last Vital Signs Temp 96.8 F 02/07/17 11:18 Pulse 12 L 02/07/17 11:18 Resp 23 H 02/07/17 11:18 BP 136/83 02/07/17 11:18 Pulse Ox 96 02/07/17 11:38 - Orders/Labs/Meds Orders: Active Orders 24 hr Category Date Time Status EKG Documentation Completion [RC] STAT Care 02/07/17 11:26 Active Peripheral IV Care [RC] . DIRECTED Care 02/07/17 11:27 Active RT Aerosol Therapy [RC] ASDIRECTED Care 02/07/17 11:27 Active RT Post Treatment Assessment [RC] Click to Edit Care 02/07/17 13:26 Active RT Pre-Treatment Assessment [RC] Click to Edit Care 02/07/17 13:26 Active Chest 1V Frontal [CR] Stat Exams 02/07/17 11:26 Taken Peripheral IV Insertion Adult [OM.PC] Stat Oth 02/07/17 11:26 Ordered Labs: Laboratory Tests 02/07/17 02/07/17 02/07/17 Range/Units 11:25 11:25 11:25 WBC 8.95 (4.23-9.07) K/mm3 RBC 4.66 (4.63-6.08) M/mm3 Hgb 14.8 (13.7-17.5) gm/L Hct 45.7 (40.1-51.0) % MCV 98.1 H (79.0-92.2) fl MCH 31.8 (25.7-32.2) pg MCHC 32.4 (32.2-35.5) g/dl RDW Std Deviation 41.2 (35.1-43.9) fL Plt Count 200 (163-337) K/mm3 MPV 9.6 (9.4-12.3) fl Neut % (Auto) 40.7 (34.0-67.9) % Lymph % (Auto) 42.6 (21.8-53.1) % Cameron % (Auto) 6.9 (5.3-12.2) % Eos % (Auto) 8.7 H (0.8-7.0) Baso % (Auto) 0.9 (0.1-1.2) % Neut # (Auto) 3.64 (1.78-5.38) K/mm3 Lymph # (Auto) 3.81 H (1.32-3.57) K/mm3 Cameron # (Auto) 0.62 (0.30-0.82) K/mm3 Eos # (Auto) 0.78 H (0.04-0.54) K/mm3 Baso # (Auto) 0.08 (0.01-0.08) K/mm3 D-Dimer, Quantitative (0.19-0.59) mg/L Sodium 141 (136-145) mEq/L Potassium 3.8 (3.5-5.1) mEq/L Chloride 103 (98-107) mEq/L Carbon Dioxide 27 (21-32) mEq/L Anion Gap 14.8 (5-15) BUN 13 (7-18) mg/dL Creatinine 1.1 (0.7-1.3) mg/dL Est Cr Clr Drug Dosing TNP Estimated GFR (MDRD) > 60 (>60) mL/min BUN/Creatinine Ratio 11.8 L (14-18) Glucose 81 (80-115) mg/dL Calcium 9.5 (8.5-10.1) mg/dL Total Bilirubin 0.4 (0.2-1.0) mg/dL AST 11 L (15-37) U/L ALT 16 (16-63) U/L Alkaline Phosphatase 79 (46-116) U/L Troponin I < 0.017 (0.00-0.056) ng/mL C-Reactive Protein 0.6 (<1.0) mg/dL Total Protein 8.0 (6.4-8.2) g/dl Albumin 3.6 (3.4-5.0) g/dl Globulin 4.4 gm/dL Albumin/Globulin Ratio 0.8 L (1-2) TSH 3rd Generation 0.413 (0.358-3.74) uIU/mL 02/07/ Range/Units 11:25 WBC (4.23-9.07) K/mm3 RBC (4.63-6.08) M/mm3 Hgb (13.7-17.5) gm/L Hct (40.1-51.0) % MCV (79.0-92.2) fl MCH (25.7-32.2) pg MCHC (32.2-35.5) g/dl RDW Std Deviation (35.1-43.9) fL Plt Count (163-337) K/mm3 MPV (9.4-12.3) fl Neut % (Auto) (34.0-67.9) % Lymph % (Auto) (21.8-53.1) % Cameron % (Auto) (5.3-12.2) % Eos % (Auto) (0.8-7.0) Baso % (Auto) (0.1-1.2) % Neut # (Auto) (1.78-5.38) K/mm3 Lymph # (Auto) (1.32-3.57) K/mm3 Cameron # (Auto) (0.30-0.82) K/mm3 Eos # (Auto) (0.04-0.54) K/mm3 Baso # (Auto) (0.01-0.08) K/mm3 D-Dimer, Quantitative 0.98 H (0.19-0.59) mg/L Sodium (136-145) mEq/L Potassium (3.5-5.1) mEq/L Chloride (98-107) mEq/L Carbon Dioxide (21-32) mEq/L Anion Gap (5-15) BUN (7-18) mg/dL Creatinine (0.7-1.3) mg/dL Est Cr Clr Drug Dosing Estimated GFR (MDRD) (>60) mL/min BUN/Creatinine Ratio (14-18) Glucose (80-115) mg/dL Calcium (8.5-10.1) mg/dL Total Bilirubin (0.2-1.0) mg/dL AST (15-37) U/L ALT (16-63) U/L Alkaline Phosphatase (46-116) U/L Troponin I (0.00-0.056) ng/mL C-Reactive Protein (<1.0) mg/dL Total Protein (6.4-8.2) g/dl Albumin (3.4-5.0) g/dl Globulin gm/dL Albumin/Globulin Ratio (1-2) TSH 3rd Generation (0.358-3.74) uIU/mL Meds: Medications Discontinued Medications Generic Name Dose Route Start Last Admin Trade Name Freq PRN Reason Stop Dose Admin Albuterol 8.5 gm 02/07/17 13:26 02/07/17 14:21 Proventil Hfa INH 02/07/17 13:27 2 puff ONETIME ONE Administration Albuterol/Ipratropium 3 ml 02/07/17 11:27 02/07/17 11:37 Duoneb 3.0-0.5 Mg/3 Ml NEB 02/07/17 11:28 3 ml ONETIME ONE Administration Doxycycline Hyclate 100 mg 02/07/17 12:27 02/07/17 12:38 Vibramycin PO 02/07/17 12:28 100 mg ONETIME ONE Administration Magnesium Sulfate 2 gm/ Premix 50 mls @ 25 mls/hr 02/07/17 11:28 02/07/17 11: 55 IV 02/07/17 13:27 25 mls/hr ONETIME ONE Administration Sodium Chloride 500 mls @ 999 mls/hr 02/07/17 12:14 02/07/17 12:23 Normal Saline IV 02/07/17 12:44 999 mls/hr .BOLUS ONE Administration Sodium Chloride 100 mls @ 80 mls/hr 02/07/17 14:30 02/07/17 14:43 Normal Saline IV 80 mls/hr ASDIRECTED RADHA Administration Iopamidol 100 ml 02/07/17 14:25 02/07/17 14:43 Isovue-370 (76%) IVPUSH 02/07/17 14:26 80 ml ONETIME ONE Administration Methylprednisolone Sodium Succinate 125 mg 02/07/17 11:27 02/07/17 11:45 Solu-Medrol IVPUSH 02/07/17 11:28 125 mg ONETIME ONE Administration Sodium Chloride 10 ml 02/07/17 11:27 02/07/17 11:55 Saline Flush FLUSH 10 ml ASDIRECTED PRN Administration Keep Vein Open Sodium Chloride 10 ml 02/07/17 14:25 02/07/17 14:43 Saline Flush FLUSH 10 ml ONETIME PRN Administration IV FLUSH - Re-Assessments/Exams Free Text/Narrative Re-Assessment/Exam: 02/07/17 12:10 Reassessment, patient sitting upright in bed with no respiratory distress after 2 duonebs, 2 grams of mg, and solumedrol. BP and SPO2 stable. Patient remains tachycardic with HR ranging from 99 to 110. On admission EKG showed multifocal atrial tachycardia at a rate of [address] changes noted. I did order 500 mls fluid bolus of normal saline to see if this will drop the patient's heart rate. States he's not been able to drink much with his recent shortness of breath. Per [facility] Criteria patient is low risk for PE. 1.3% chance of PE in an ED population. Thus ordered ddimer. Cannot rule out PE. Review chest x-ray with Dr. Helms with questionable right lower lobe infiltrate with comparison to previous chest x-ray obtained December 21, 2016. Ordered doxycycline 100 mg by mouth. Labs reviewed: CBC and chemistry panel were essentially normal. TSH and DDimer are pending. DDimer ordered since HR has not significantly improved. Cannot rule out PE at this point. 1337 D-Dimer is 0.98. Shared results of labs and studies with patient. He has refused to obtain CTA of the chest to rule out PE. I did inform him of the possible complications with not diagnosing a PE with the worst being sudden . Although low risk with previous D-Dimer September [address] was [address] of the chest for PE. We discussed reasons to return to the E.D. If he develops increasing SOB, CP, dizziness, and or presyncope/sycopal episodes. Patient received albuterol inhaler upon discharge from the E.D. I will also discharge him home with doxycycline and prednisone as well. Discharge instructions as documented. 02/07/17 14:00 Per Nursing staff patient requests having the CTA of the chest. This as been ordered. 02/07/17 15:31 CT chest Technique: Multiple axial sections through the chest were obtained. Intravenous contrast was utilized. Comparison: Prior chest CT 05/28/16. Findings: Pulmonary arteries are well opacified. No filling defects are seen to indicate pulmonary embolism. Small mediastinal lymph nodes are seen which are felt to be within normal limits. No axillary adenopathy is seen. There is several calcified lymph nodes being seen within the mediastinum compatible with previous granulomatous disease. Mild coronary artery calcification is seen. No pericardial thickening is identified. Density is noted within the gallbladder compatible with gallstones. 7 mm subpleural nodule is noted within the left lung base. This measured 5 mm on prior exam and has slightly increased in size. Small subpleural nodule is noted within the right middle lobe measuring 3.7 mm which is felt to be fairly stable from prior exam. Lungs otherwise are clear. Impression: 1. Slightly enlarging subpleural nodule within the left base. Recommend follow -up noncontrast chest CT in 6 months to see if this continues to increase in size indicating further intervention. 2. No findings of pulmonary embolism. 3. Small subpleural nodule within the right middle lobe which is believed to be stable. 4. Other incidental findings as noted above. 02/07/17 15:[address] study with patient. He has no complaints at this time. Wishing to be discharged home. BP and SPO2 stable. Patients HR fluctuates from 109 to 118. Sinus tachycardia. He has no symptoms. Will discharge home. Departure - Departure Time of Disposition: 13:49 Disposition: Home, Self-Care 01 Condition: Good Clinical Impression: COPD exacerbation, Lung nodules - Discharge Information Prescriptions: Doxycycline [Vibramycin] 100 mg PO Q12HR #14 cap Albuterol [Proventil HFA] 2 puff INH QID PRN #1 inhaler PRN Reason: Cough Prednisone [IJD: predniSONE] 40 mg PO WITHBREAKFAST #10 tab Instructions: Chronic Obstructive Pulmonary Disease Exacerbation, [id number] , Chronic Obstructive Pulmonary Disease, [id number] Referrals: Ramses Olivares MD [Primary Care Provider] - Forms: ED Department Discharge Additional Instructions: Continue taking a albuterol inhaler 1-2 puffs every 4 hours as needed for shortness of breath, cough, and wheezing. Take prednisone 40 mg every day for the next 5 days. Will have you take doxycycline 100 mg twice a day for the next 7 days. Can utilize Mucinex 600 mg twice a day to loosen secretions. Push the fluids. Keep appointment with PCP scheduled for tomorrow. You must remain on a steroid inhaler and also albuterol inhaler. Return to the ED if you develop any new or worsening symptoms. Refrain from being out in the cold. In addition CT of the Chest revealed: Slightly enlarging subpleural nodule within the left base. Recommend follow-up with PCP to schedule noncontrast chest CT in 6 months to see if this continues to increase in size indicating further intervention. - My Orders Last 24 Hours: My Active Orders 02/07/17 11:26 EKG Documentation Completion [RC] STAT Chest 1V Frontal [CR] Stat Peripheral IV Insertion Adult [OM.PC] Stat 02/07/17 11:27 Peripheral IV Care [RC] . DIRECTED RT Aerosol Therapy [RC] ASDIRECTED 02/07/17 13:26 RT Post Treatment Assessment [RC] Click to Edit RT Pre-Treatment Assessment [RC] Click to Edit - Assessment/Plan Last 24 Hours: My Active Orders 02/07/17 11:26 EKG Documentation Completion [RC] STAT Chest 1V Frontal [CR] Stat Peripheral IV Insertion Adult [OM.PC] Stat 02/07/17 11:27 Peripheral IV Care [RC] . DIRECTED RT Aerosol Therapy [RC] ASDIRECTED 02/07/17 13:26 RT Post Treatment Assessment [RC] Click to Edit RT Pre-Treatment Assessment [RC] Click to Edit
[2017-02-07] MEDS ORDERED: Sodium Chloride 0.9% 500 ML IV ONE (12:14)
[2017-02-07] MEDS ORDERED: Doxycycline 100 MG Cap PO ONE (12:27)
[2017-02-07 12:39] VITALS: BP 136/83
[2017-02-07] MEDS ORDERED: Albuterol 6.7 GM Inhaler INH ONE (13:26)
[2017-02-07] MEDS ORDERED: Iopamidol 755 Mg/ML 100 ML Bottle IVPUSH ONE (14:25)
[2017-02-07] MEDS ORDERED: Sodium Chloride 0.9% 100 ML IV SCH (14:30)
--- NOTE | 2017-02-07 15:18 | CT ---
CT chest Technique: Multiple axial sections through the chest were obtained. Intravenous contrast was utilized. Comparison: Prior chest CT 05/28/16. Findings: Pulmonary arteries are well opacified. No filling defects are seen to indicate pulmonary embolism. Small mediastinal lymph nodes are seen which are felt to be within normal limits. No axillary adenopathy is seen. There is several calcified lymph nodes being seen within the mediastinum compatible with previous granulomatous disease. Mild coronary artery calcification is seen. No pericardial thickening is identified. Density is noted within the gallbladder compatible with gallstones. 7 mm subpleural nodule is noted within the left lung base. This measured 5 mm on prior exam and has slightly increased in size. Small subpleural nodule is noted within the right middle lobe measuring 3.7 mm which is felt to be fairly stable from prior exam. Lungs otherwise are clear. Impression: 1. Slightly enlarging subpleural nodule within the left base. Recommend follow-up noncontrast chest CT in 6 months to see if this continues to increase in size indicating further intervention. 2. No findings of pulmonary embolism. 3. Small subpleural nodule within the right middle lobe which is believed to be stable. 4. Other incidental findings as noted above. Diagnostic code #9
--- NOTE | 2017-02-08 07:59 | CR ---
Chest: Portable view of the chest was obtained. Comparison: Prior chest x-ray of 12/21/16. Heart size and mediastinum are normal. Lungs are clear. Bony structures are grossly intact. Impression: 1. Nothing acute is identified on portable chest x-ray. Diagnostic code #1
== END 2017-02-07 15:45 | disposition home or self-care (01) ==
LOC: JD.ED 11:11
DX: J44.1 Chronic obstructive pulmonary disease with (acute) exacerbation (principal); R91.8 Other nonspecific abnormal finding of lung field; Z87.891 Personal history of nicotine dependence
CPT/HCPCS: 36415; 71010; 71275; 80053; 84443; 84484; 85025; 85379; 86140; 93005; 96365; 96366; 96375; 99285; A9270; J2930; J7030; J7040; J7050; Q9967; 93010; 99284; J3475

== ENCOUNTER 2017-03-22 07:48 | Emergency (ER) | payer SELFPAY ==
[2017-03-22] MEDS ORDERED: Sodium Chloride 0.9% 10 ML Syringe FLUSH PRN (07:57)
[2017-03-22] MEDS ORDERED: Albuterol/Ipratropium 3.0-0.5 MG/3 ML Neb Soln NEB ONE (07:57)
[2017-03-22] MEDS ORDERED: methylPREDNISolone Sodium Succinate 125 MG/2 ML SDV IVPUSH ONE (07:58)
[2017-03-22] MEDS ORDERED: Magnesium Sulfate/Water 2 GM in Premix Bag 1 BAG IV ONE (07:58)
[2017-03-22] MEDS ORDERED: Albuterol/Ipratropium 3.0-0.5 MG/3 ML Neb Soln ONE (08:02)
--- NOTE | 2017-03-22 08:13 | EDM.PDOC ---
ED HPI GENERAL MEDICAL PROBLEM - General Chief Complaint: Respiratory Problem Stated Complaint: [facility] Time Seen by Provider: 03/22/17 07:54 Source of Information: Reports: Patient, EMS History Limitations: Reports: No Limitations - History of Present Illness INITIAL COMMENTS - FREE TEXT/NARRATIVE: The patient presents with shortness of breath. He has a cough. He has no fever but he has chills. He has no chest pain. He has no abdominal pain, nausea or vomiting. He has a history of chronic bronchitis. EMS was called and he was given [address] in. He quit smoking. This started this morning. Onset: Gradual Duration: Hour(s): Severity: Severe Improves with: Reports: None Worsens with: Reports: None Associated Symptoms: Reports: Cough, Fever/Chills, Shortness of Breath - Related Data Allergies Allergy/AdvReac Type Severity Reaction Status Date / Time No Known Allergies Allergy Verified 03/22/17 08:16 Home Meds: Home Meds Clonazepam. 1 mg PO DAILY PRN 02/07/17 [History] Levothyroxine. 125 mcg PO DAILY 02/07/17 [History] Doxycycline [Vibramycin] 100 mg PO BID 03/22/17 [History] Ipratropium/Albuterol Sulfate [Iprat-Albut 0.5-3(2.5) MG/3 ML] 1 inh INH Q6H PRN 03/22/17 [History] Prednisone [IJD: predniSONE] 0 mg PO BID 03/22/17 [History] Past Medical History - Past Health History Medical/Surgical History: Denies Medical/Surgical History HEENT History: Reports: Other (See Below) Other HEENT History: wears glasses Cardiovascular History: Reports: Hypertension Respiratory History: Reports: Asthma, Bronchitis, Recurrent, COPD Psychiatric History: Reports: Depression Endocrine/Metabolic History: Reports: Hypothyroidism - Infectious Disease History Infectious Disease History: Reports: Chicken Pox, Mumps Social & Family History - Family History Family Medical History: Noncontributory - Tobacco Use Smoking Status *Q: Former Smoker Years of Tobacco use: 30 Packs/Tins Daily: 1.5 Used Tobacco, but Quit: Yes Month Tobacco Last Used: 3 months Second Hand Smoke Exposure: No - Caffeine Use Caffeine Use: Reports: Coffee - Alcohol Use Days Per Week of Alcohol Use: 6 Number of Drinks Per Day: 2 Total Drinks Per Week: 12 - Recreational Drug Use Recreational Drug Use: No - Living Situation & Occupation Living situation: Reports: , Alone 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 Denies: Fever HEENT: Reports: No Symptoms Respiratory: Reports: Shortness of Breath, Cough Cardiovascular: Reports: No Symptoms Endocrine: Reports: No Symptoms GI/Abdominal: Reports: No Symptoms : Reports: No Symptoms Musculoskeletal: Reports: No Symptoms Skin: Reports: No Symptoms Neurological: Reports: No Symptoms ED EXAM, GENERAL - Physical Exam Exam: See Below Exam Limited By: No Limitations General Appearance: Alert, No Apparent Distress Ears: Normal External Exam Nose: Normal Inspection Head: Atraumatic, Normocephalic Neck: Normal Inspection Respiratory/Chest: Respiratory Distress (Moderate), Decreased Breath Sounds, Wheezing Cardiovascular: Regular Rate, Rhythm, No Edema, No Murmur GI/Abdominal: Soft, Non-Tender, No Organomegaly, No Mass Back Exam: Normal Inspection Extremities: Normal Inspection Neurological: Alert, Oriented, No Motor/Sensory Deficits EKG INTERPRETATION EKG Date: 03/22/17 Time: 08:23 Rhythm: Other (Sinus tachycardia) Rate (Beats/Min): 123 [place]: LAD-Left [place] Deviation P-Wave: Present QRS: Normal ST-T: Normal QT: Normal Course - Vital Signs Last Recorded V/S: Last Vital Signs Temp 96.6 F 03/22/17 07:53 Pulse 136 H 03/22/17 07:53 Resp 40 H 03/22/17 07:53 BP 154/107 H 03/22/17 07:53 Pulse Ox 91 L 03/22/17 07:59 - Orders/Labs/Meds Orders: Active Orders 24 hr Category Date Time Status Cardiac Monitoring [RC] . DIRECTED Care 03/22/17 07:57 Active EKG Documentation Completion [RC] STAT Care 03/22/17 07:57 Active Oxygen Therapy [RC] PRN Care 03/22/17 07:57 Active Peripheral IV Care [RC] . DIRECTED Care 03/22/17 07:57 Active RT Aerosol Therapy [RC] ASDIRECTED Care 03/22/17 07:57 Active Chest 1V Frontal [CR] Stat Exams 03/22/17 07:57 Taken CBC WITH AUTO DIFF [HEME] Stat Lab 03/22/17 08:15 Results CULTURE SPUTUM + SMEAR [RM] Stat Lab 03/22/17 08:30 Received Magnesium Sulfate/Water [Magnesium Sulfate 2 GM in Med 03/22/17 07:58 Active Water 50 ML] 2 gm Premix Bag 1 bag IV ONETIME Sodium Chloride 0.9% [Saline Flush] Med 03/22/17 07:57 Active 10 ml FLUSH ASDIRECTED PRN Peripheral IV Insertion Adult [OM.PC] Stat Oth 03/22/17 07:57 Ordered Medication Orders Magnesium Sulfate 2 gm/ Premix 50 mls @ 25 mls/hr IV ONETIME ONE Stop: 03/22/17 09:57 Last Admin: 03/22/17 08:33 Dose: 25 mls/hr Sodium Chloride (Saline Flush) 10 ml FLUSH ASDIRECTED PRN PRN Reason: Keep Vein Open Last Admin: 03/22/17 07:50 Dose: 10 ml Labs: Laboratory Tests 03/22/17 03/22/17 Range/Units 08:15 08:15 WBC 12.46 H (4.23-9.07) K/mm3 RBC 5.41 (4.63-6.08) M/mm3 Hgb 16.8 (13.7-17.5) gm/L Hct 50.5 (40.1-51.0) % MCV 93.3 H (79.0-92.2) fl MCH 31.1 (25.7-32.2) pg MCHC 33.3 (32.2-35.5) g/dl RDW Std Deviation 46.0 H (35.1-43.9) fL Plt Count 293 (163-337) K/mm3 MPV 9.5 (9.4-12.3) fl Neut % (Auto) 50.8 (34.0-67.9) % Lymph % (Auto) 42.7 (21.8-53.1) % Ritchie % (Auto) 5.1 L (5.3-12.2) % Eos % (Auto) 0.6 L (0.8-7.0) Baso % (Auto) 0.6 (0.1-1.2) % Neut # (Auto) 6.32 H (1.78-5.38) K/mm3 Lymph # (Auto) 5.32 H (1.32-3.57) K/mm3 Ritchie # (Auto) 0.64 (0.30-0.82) K/mm3 Eos # (Auto) 0.08 (0.04-0.54) K/mm3 Baso # (Auto) 0.07 (0.01-0.08) K/mm3 Sodium 136 (136-145) mEq/L Potassium 3.6 (3.5-5.1) mEq/L Chloride 102 (98-107) mEq/L Carbon Dioxide 23 (21-32) mEq/L Anion Gap 14.6 (5-15) BUN 23 H (7-18) mg/dL Creatinine 1.1 (0.7-1.3) mg/dL Est Cr Clr Drug Dosing 63.43 mL/min Estimated GFR (MDRD) > 60 (>60) mL/min BUN/Creatinine Ratio 20.9 H (14-18) Glucose 126 H (80-115) mg/dL Calcium 8.8 (8.5-10.1) mg/dL Total Bilirubin 0.4 (0.2-1.0) mg/dL AST 18 (15-37) U/L ALT 24 (16-63) U/L Alkaline Phosphatase 85 (46-116) U/L Troponin I < 0.017 (0.00-0.056) ng/mL Total Protein 7.6 (6.4-8.2) g/dl Albumin 3.6 (3.4-5.0) g/dl Globulin 4.0 gm/dL Albumin/Globulin Ratio 0.9 L (1-2) Meds: Medications Generic Name Dose Route Start Last Admin Trade Name Freq PRN Reason Stop Dose Admin Magnesium Sulfate 2 gm/ Premix 50 mls @ 25 mls/hr 03/22/17 07:58 03/22/17 08: 33 IV 03/22/17 09:57 25 mls/hr ONETIME ONE Administration Sodium Chloride 10 ml 03/22/17 07:57 03/22/17 07:50 Saline Flush FLUSH 10 ml ASDIRECTED PRN Administration Keep Vein Open Discontinued Medications Generic Name Dose Route Start Last Admin Trade Name Freq PRN Reason Stop Dose Admin Albuterol/Ipratropium 3 ml 03/22/17 07:57 03/22/17 07:59 Duoneb 3.0-0.5 Mg/3 Ml NEB 03/22/17 07:58 3 ml ONETIME ONE Administration Albuterol/Ipratropium Confirm 03/22/17 08:02 03/22/17 08:07 Duoneb 3.0-0.5 Mg/3 Ml Administered 03/22/17 08:03 Not Given Dose 3 ml .ROUTE .STK-MED ONE Methylprednisolone Sodium Succinate 125 mg 03/22/17 07:58 03/22/17 08:05 Solu-Medrol IVPUSH 03/22/17 07:59 125 mg ONETIME ONE Administration - Re-Assessments/Exams Free Text/Narrative Re-Assessment/Exam: 03/22/17 08:15 I ordered an IV saline lock, oxygen, duoneb, solu-medrol 125mg IV, magnesium 2 grams IV, EKG, CXR and labs. 03/22/17 09:32 His EKG shows a sinus tachycardia. His CXR shows no infiltrates. His WBC was slightly elevated at 12.46. His glucose was elevated at 126. His troponin was negative. He feels and sounds much better. He has bronchitis. Dr Howard is taking care of him now and has called in doxycycline and nebs. Departure - Departure Time of Disposition: 09:35 Disposition: Home, Self-Care 01 Condition: Good Clinical Impression: Bronchitis - Discharge Information Referrals: Ramses Olivares MD [Primary Care Provider] - 1 Week Forms: ED Department Discharge Additional Instructions: Take the prednisone as prescribed. Take the doxycycline as prescribed and use the albuterol as needed. Please return if you are worse. - My Orders Last 24 Hours: My Active Orders 03/22/17 07:57 Cardiac Monitoring [RC] . DIRECTED EKG Documentation Completion [RC] STAT Oxygen Therapy [RC] PRN Peripheral IV Care [RC] . DIRECTED RT Aerosol Therapy [RC] ASDIRECTED Chest 1V Frontal [CR] Stat Sodium Chloride 0.9% [Saline Flush] 10 ml FLUSH ASDIRECTED PRN Peripheral IV Insertion Adult [OM.PC] Stat 03/22/17 07:58 Magnesium Sulfate/Water [Magnesium Sulfate 2 GM in Water 50 ML] 2 gm Premix Bag 1 bag IV ONETIME 03/22/17 08:15 CBC WITH AUTO DIFF [HEME] Stat 03/22/17 08:30 CULTURE SPUTUM + SMEAR [RM] Stat - Assessment/Plan Last 24 Hours: My Active Orders 03/22/17 07:57 Cardiac Monitoring [RC] . DIRECTED EKG Documentation Completion [RC] STAT Oxygen Therapy [RC] PRN Peripheral IV Care [RC] . DIRECTED RT Aerosol Therapy [RC] ASDIRECTED Chest 1V Frontal [CR] Stat Sodium Chloride 0.9% [Saline Flush] 10 ml FLUSH ASDIRECTED PRN Peripheral IV Insertion Adult [OM.PC] Stat 03/22/17 07:58 Magnesium Sulfate/Water [Magnesium Sulfate 2 GM in Water 50 ML] 2 gm Premix Bag 1 bag IV ONETIME 03/22/17 08:15 CBC WITH AUTO DIFF [HEME] Stat 03/22/17 08:30 CULTURE SPUTUM + SMEAR [RM] Stat
--- NOTE | 2017-03-22 09:40 | CR ---
Chest: Portable view of the chest was obtained. Comparison: Prior chest x-ray of 02/07/[address] of 02/07/17. Heart size and mediastinum are within normal limits. Lungs are clear with no acute parenchymal densities being seen. Chest CT showed a subpleural nodule within the left base which is too small to identify by plain film exam. Degenerative endplate spurring is noted within the spine. Impression: 1. Incidental findings. Nothing acute is identified on portable chest x-ray. Diagnostic code #2
[2017-03-22 10:29] VITALS: BP 109/69
== END 2017-03-22 10:20 | disposition home or self-care (01) ==
LOC: SUPCPDRO 07:48 → JD.ED 07:48
DX: J40 Bronchitis, not specified as acute or chronic (principal); I10 Essential (primary) hypertension; Z87.891 Personal history of nicotine dependence; Z79.899 Other long term (current) drug therapy
CPT/HCPCS: 36415; 71045; 80053; 84484; 85025; 87070; 87077; 87186; 87205; 87804; 93005; 94640; 96365; 96366; 96375; 99285; J2930; J7050; 93010; 99284-25; J3475